=== PATIENT | male | born 1940 | race Caucasian/White ===

== ENCOUNTER → 2016-09-03 | Outpatient (CLI) | payer OTHER ==
[2016-09-03 16:18] LABS: Non-African American GFR(MDRD) >60 (>60 ml/min/1.73 sqM)
== END | disposition home or self-care (01) ==
LOC: LABWHC1 15:33
PROVIDERS: ATTEND Psychiatry & Neurology Neurology
DX: Z13.89 Encounter for screening for other disorder (principal)
CPT/HCPCS: 36415; 82565

== ENCOUNTER → 2016-09-04 | Outpatient (CLI) | payer OTHER ==
--- NOTE | 2016-09-04 15:49 | MR ---
EXAMINATION TYPE: MR cervical spine wo/w con DATE OF EXAM: 09/04/2016 12:59 PM COMPARISON: NONE HISTORY: numbness in both hands TECHNIQUE: Multiplanar, multisequence images of the cervical spine were acquired utilizing 20 mL intravenous Mul tiHance gadolinium contrast. Diffusion weighted imaging was performed. C2-C3: Hemangioma present at the posterior aspect of C3. No significant foraminal encroachment on the right, left-sided foraminal encroachment is present. No significant central canal stenosis or sizabl e disc herniation. C3-C4: Bilateral foraminal encroachment is present. There is moderate to severe central canal stenosi s due to posterior extension of endplate disc complex. C4-C5: Posterior extension of endplate disc complex contact the anterior cervical cord, there is face t arthropathy, uncovertebral joint hypertrophy causing moderate to severe central canal stenosis. C5-C6: Posterior circumferential extension of endplate disc complex, circumferential disc bulge conta cts the anterior cervical cord. There is mild to moderate central stenosis. Bilateral foraminal encro achment due to uncovertebral joint hypertrophy and facet arthropathy. C6-C7: Bilateral foraminal encroachment is present. Posterior extension of endplate disc complex is n oted, there is a right posterior paracentral disc herniation contacting the anterior cervical cord. M ild central stenosis. C7-T1: No evidence for degenerative disc disease. No disc bulge/herniation or protrusion. No Canal stenosis. Foramina are patent bilaterally. Cervical segments are intact. There is normal alignment. Cervical spinal cord is of normal signal. Craniovertebral junction relationships are within normal limits. Cervical vertebral bodies show pre served height, there is retrolisthesis grade 1 C3-4, anterolisthesis grade 1 C4-5, retrolisthesis gra de 1 C5-6, C6-7. Probable hemangioma present at C6. Loss of disc height and signal present especially at C3-4, C4-5, C5-6 and C6-7 compatible with disc desiccation and degenerative disc disease. There i s multilevel spondylosis, endplate discogenic marrow signal change. Cervical cord signal, cervical me dullary junction are normal. 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 No significant abnormal enhancement following contrast menstruation. There is motion on the exam. IMPRESSION: Marked spinal stenosis especially at C3-4, C4-5. Degenerative disc disease, multilevel foraminal encr oachment. There may be substernal goiter present. Additional findings above.
== END | disposition home or self-care (01) ==
LOC: RADMRIMAIN 11:45
PROVIDERS: ATTEND Psychiatry & Neurology Neurology
DX: M48.02 Spinal stenosis, cervical region (principal); M50.30 Other cervical disc degeneration, unspecified cervical region
CPT/HCPCS: 72156; A9577

== ENCOUNTER → 2017-01-30 | Outpatient (CLI) | payer OTHER ==
--- NOTE | 2017-01-30 15:43 | US ---
EXAMINATION TYPE: US kidneys/renal and bladder DATE OF EXAM: 01/30/2017 COMPARISON: NONE CLINICAL HISTORY: hydronephrosis N13.30; renal and bladder stones with history of October and November 2016 stones removed left kidney; stated had prior bladder stones removed too last year. EXAM MEASUREMENTS: Right Kidney: 11.6 x 7.6 x 5.5 cm Left Kidney: 10.9 x 4.5 x 5.2 cm Post Void Residual Volume: 212.7 mL Right Kidney: lower pole cortical cyst = 3.1 x 2.7 x 2.9cm; multiple renal stones are seen with large st as cluster in lower pole = 0.7 x 0.6 x 0.8cm; no hydronephrosis Left Kidney: mid pole cortical cyst = 1.3 x 1.5 x 1.4cm; no hydronephrosis Bladder: shadowing bladder stone = 0.9 x 0.9 x 0. 6cm is seen at posterior bladder wall on images 9,1 0, and 11 and on post void Bilateral Jets seen: Yes Normal Post Void Residual: No as is > 50ml. . IMPRESSION: 1. Findings suggest right-sided nephrolithiasis and bladder calculus with no hydronephrosis. 2. Bilateral hypoechoic nodules with with a single lesion in the medial mid right kidney which does n ot meet the criteria of a simple cyst. This most likely is technical. Correlation with CT scan could be obtained for confirmation. 3. Prostate is prominent in size.
== END | disposition home or self-care (01) ==
LOC: RADUSWWP 13:16
PROVIDERS: ATTEND Urology
DX: N28.89 Other specified disorders of kidney and ureter (principal)
CPT/HCPCS: 76770

== ENCOUNTER → 2017-04-03 | Outpatient (CLI) | payer OTHER ==
--- NOTE | 2017-04-03 16:01 | US ---
EXAMINATION TYPE: US thyroid st tissue head/neck DATE OF EXAM: 04/03/2017 COMPARISON: NONE CLINICAL HISTORY: E04.1 Thyroid Nodule. goiter per patient, no prior here. GLAND SIZE: Right Lobe: 5.3 x 1.9 x 2.5 cm Overall Parenchyma: homogenous Left Lobe: 7.5 x 3.8 x 3.1 cm Overall Parenchyma: heterogeneous Isthmus Thickness: 0.2 cm NODULES RIGHT: # of nodules measured on right: 1 1. 0.8 X 0.7 x 0.7 cm isoechoic solid nodule at the mid pole with well-defined margins; . This nod ule is wider than tall and shows intranodular vascularity. Prior size: no prior here LEFT: # of nodules measured on left: 1 1. 4.9 X 3.6 x 3.4 cm hypoechoic solid nodule at the lower pole with well-defined margins; . This nodule is wider than tall and shows intranodular vascularity. Prior size: no prior here ISTHMUS: # of nodules measured in the isthmus: 0 Bilateral neck scanned, no evidence of lymphadenopathy. difficult to tell if entire left lobe and nodule are being imaged as gland and nodule extend below cl avicle. IMPRESSION: 1. Heterogeneous pattern of the left lobe of the thyroid suggestive of thyroiditis. Large dominant no dule measuring 4.9 cm noted.
== END | disposition home or self-care (01) ==
LOC: RADUSWWP 15:22
PROVIDERS: ATTEND Otolaryngology
DX: E04.1 Nontoxic single thyroid nodule (principal)
CPT/HCPCS: 76536

== ENCOUNTER → 2017-11-23 | Outpatient (CLI) | payer OTHER ==
--- NOTE | 2017-11-23 13:58 | US ---
EXAMINATION TYPE: US thyroid st tissue head/neck DATE OF EXAM: 11/23/2017 COMPARISON: US 04/03/2017 CLINICAL HISTORY: E04.1 THYROID NODULE. GLAND SIZE: Right Lobe: 5.3 x 1.6 x 1.6 cm Overall Parenchyma: homogenous Left Lobe: 6.9 x 4.1 x 2.7 cm Overall Parenchyma: Difficult to assess left lobe texture since nodule takes up most of the thyro id. Isthmus Thickness: 0.5 cm NODULES RIGHT: # of nodules measured on right: 1 1. 0.7 X 0.7 x 0.7 cm hypoechoic solid nodule at the mid pole with well-defined margins; . This no dule is as all as wide and shows no intranodular vascularity. Prior size: 0.8 x 0.7 x 0.7 cm LEFT: # of nodules measured on left: 1 1. 4.9 X 3.7 x 3.7 cm hypoechoic mixed nodule at the lower pole with irregular margins; . This nod ule is as wide as tall and shows intranodular vascularity. Prior size: 4.9 x 3.6 x 3.4 cm ISTHMUS: # of nodules measured in the isthmus: 0 Bilateral neck scanned, no evidence of lymphadenopathy. IMPRESSION: Although there is a similar appearance of the left thyroid nodule measuring up to 4.9 cm in compariso n to the prior of 04/03/2017, percutaneous fine-needle aspiration should be considered given its hete rogeneity, size, and dominance. Solitary right thyroid nodule subcentimeter and overall stable.
== END | disposition home or self-care (01) ==
LOC: RADUSWWP 13:15
PROVIDERS: ATTEND Otolaryngology
DX: E04.1 Nontoxic single thyroid nodule (principal)
CPT/HCPCS: 76536

== ENCOUNTER → 2018-09-17 | Outpatient (CLI) | payer OTHER ==
--- NOTE | 2018-09-17 16:09 | CT ---
EXAMINATION TYPE: CT chest w con DATE OF EXAM: 09/17/2018 COMPARISON: Chest x-ray April 15, 2018 HISTORY: Lung nodules. Previous abnormal exam CT DLP: 712 mGycm. Automated Exposure Control for Dose Reduction was Utilized. TECHNIQUE: CT scan of the thorax is performed following with IV Contrast, patient injected with 80 m L of Isovue 300. FINDINGS: LUNGS: There is motion artifact degradation seen making evaluation suboptimal particularly for subcen timeter nodules. There is 6 mm nodule in the right middle lobe axial image 43 corresponding to villanueva l image 56. There is 4 x 3 mm nodule right midlung anteriorly axial image 31 corresponding to coronal image 49 also on the right middle lobe. There is bibasilar linear scarring and/or atelectasis is pro minent near diaphragms. There is 3 mm right lower lobe nodule axial image 41. No pleural effusion or pneumothorax is evident. Slightly elevated left hemidiaphragm is noted. Tracheobronchial tree is chris nt MEDIASTINUM: There are prominent but subcentimeter bilateral hilar as well as thoracic lymph nodes in the prevascular space, AP window, paratracheal, and subcarinal regions. If you are abnormally enlarg ed for reference right tracheobronchial lymph node measures 1. A 5.1 cm-image 25. No cardiomegaly or pericardial effusion is seen. There is enlarged left thyroid nodule which correlates with thyroid u ltrasound November 23, 2017 and older studies measuring 4 to 5 cm. OTHER: [id number] multilevel spurring in the spine is present. Slight scoliotic curvature is seen. IMPRESSION: Scattered nodules with borderline suspicious thoracic lymph nodes as detailed above. C orrelation with old outside CT advised to determine appropriate follow-up.
== END ==
LOC: RADCTMAIN 14:02
PROVIDERS: ATTEND Internal Medicine
DX: R91.8 Other nonspecific abnormal finding of lung field (principal)
CPT/HCPCS: 82565; 84520; 71260; 36415; Q9967

== ENCOUNTER → 2019-05-19 | Outpatient (CLI) | payer OTHER ==
--- NOTE | 2019-05-20 04:08 | CT ---
EXAMINATION TYPE: CT chest w con DATE OF EXAM: 05/19/2019 COMPARISON: 09/17/2018 and 04/22/2016. CT abdomen and pelvis 04/15/2017 HISTORY: 78-year-old male Follow up for lung nodule. TECHNIQUE: Contiguous axial scanning of the chest after the administration of 80ml mL of Isovue 300. Coronal/sagittal reconstructions performed. CT DLP: 647.4mGycm. Automatic exposure control utilized for a dose reduction. FINDINGS: Heart normal size without pericardial effusion. Prominent epicardial fat pad is noted. Coronary vesse l calcifications. Aorta normal caliber with mild atherosclerotic arch calcifications and conventional arch vessel branc marcela anatomy. Borderline to mildly enlarged caliber to the main right and left pulmonary arteries measuring up to 2 .8 cm may reflect underlying pulmonary arterial hypertension. Nonenlarged to mildly enlarged mediastinal lymph nodes measuring up to 1.1 cm right tracheobronchial angle and 1.1 cm precarinal are unchanged. Prominent bilateral hilar lymph nodes are unchanged measur ing up to 1.6 cm on the right and 1.3 cm on the left. Interval resection of the previous large left thyroid lobe nodule which demonstrated substernal exten rashmi. Prominent scattered areas of atelectasis and scarring within the lower lungs. Some chronic interstiti al changes are also present such as at the posterior left base. 7 mm right basilar pulmonary nodule stable back to 2016. 4 mm anterior right midlung pulmonary nodule stable back to 2016. 4 mm right upper lobe pulmonary nodule axial image 31, stable. No new consolidation or pleural effusion. Visualized upper abdomen shows a 1.3 cm cortical cyst lateral left kidney, stable from 2017 and a par tially visualized 4 mm nonobstructive left renal calculus. Bones: Bridging anterior plate spondylosis mid to lower thoracic spine compatible with dish. Superior endplate Schmorl's node of L2. IMPRESSION: 1. A few pulmonary nodules measuring up to 7 mm are all unchanged back to 2016 compatible with a roderick gn etiology. 2. Prominent scattered areas of atelectasis and scarring and some chronic interstitial change at the lower lungs. 3. Interval resection of the large left thyroid nodule. Nonenlarged and mildly enlarged mediastinal a nd hilar lymph nodes are stable back to 2016 compatible with a chronic postinflammatory etiology.
== END | disposition home or self-care (01) ==
LOC: RADCTMAIN 14:02
PROVIDERS: ATTEND Internal Medicine
DX: J98.11 Atelectasis (principal); R91.8 Other nonspecific abnormal finding of lung field; R59.1 Generalized enlarged lymph nodes
CPT/HCPCS: 82565; 84520; 71260; 36415; Q9967

== ENCOUNTER 2021-05-29 17:22 | Emergency (ER) | payer OTHER, MEDICARE ==
[2021-05-29] MEDS ORDERED: MORPHINE SULFATE 4 MG/ML SYRINGE IVP STA (17:51)
[2021-05-29 17:53] VITALS: TEMP 98.2
[2021-05-29 18:35] LABS: Basophils % (A) 0 %; Eosinophils # (A) 0.1 k/uL (0-0.7); Eosinophils % (A) 2 %; HCT 40.4 % (39.0-53.0); HGB 12.9 gm/dL (13.0-17.5); Lymphocytes # (A) 2.2 k/uL (1.0-4.8); Lymphocytes % (A) 34 %; MCH 29.1 pg (25.0-35.0); MCV 91.1 fL (80.0-100.0); Mean Platelet Volume 7.1; Monocytes # (A) 0.4 k/uL (0-1.0); Monocytes % (A) 6 %; Neutrophils # (A) 3.7 k/uL (1.3-7.7); Neutrophils % (A) 57 %; Platelet Count 353 k/uL (150-450); RBC 4.43 m/uL (4.30-5.90); RDW 14.8 % (11.5-15.5); WBC 6.4 k/uL (3.8-10.6)
[2021-05-29 18:46] LABS: ALT 17 U/L (4-49); AST 37 U/L (17-59); African American GFR (CKD) >90 (>60 ml/min/1.73 sqM); Albumin 3.1 g/dL (3.5-5.0); Alkaline Phosphatase 52 U/L (38-126); Amylase 42 U/L (30-110); Anion Gap 5 mmol/L; Blood Urea Nitrogen 12 mg/dL (9-20); Calcium 8.8 mg/dL (8.4-10.2); Carbon Dioxide 29 mmol/L (22-30); Chloride 97 mmol/L (98-107); Glucose 84 mg/dL (74-99); Lipase 142 U/L (23-300); Non-African American GFR(CKD) >90 (>60 ml/min/1.73 sqM); Sodium 131 mmol/L (137-145); Total Bilirubin 0.8 mg/dL (0.2-1.3); Total Protein 6.4 g/dL (6.3-8.2)
--- NOTE | 2021-05-29 19:38 | CT ---
EXAMINATION TYPE: CT abdomen pelvis wo con DATE OF EXAM: 05/29/2021 COMPARISON: 04/15/2017. HISTORY: hematuria CT DLP: 1307.4 mGycm Automated exposure control for dose reduction was used. TECHNIQUE: Helical acquisition of images was performed from the lung bases through the pelvis. FINDINGS: LUNG BASES: Mild bibasilar opacities, probably atelectasis. LIVER/GB: No significant abnormality is appreciated. PANCREAS: No significant abnormality is seen. SPLEEN: No significant abnormality is seen. ADRENALS: No significant abnormality is seen. KIDNEYS: Nonobstructing adjacent renal calculi in the left kidney lower pole measuring up to 8 mm. Al so few nonobstructing right renal calculi measuring up to 2 mm. No bilateral hydronephrosis. 1.6 cm l eft and 2.6 cm right renal cyst seen. FREE AIR: No free air is visualized RETROPERITONEAL ADENOPATHY: None visualized REPRODUCTIVE ORGANS: No significant abnormality is seen URINARY BLADDER: Moderate urinary bladder wall thickening. Fernandez catheter with balloon within the pr ostatic urethra seen. PELVIC ADENOPATHY: None visualized. OSSEOUS STRUCTURES: No acute abnormality is seen. Moderate lumbar spondylosis with levoconvex scolio sis. BOWEL: No acute abnormality is seen. Gastric tube in adequate position seen. OTHER: None IMPRESSION: FERNANDEZ CATHETER WITH BALLOON IN THE PROSTATIC URETHRA. RECOMMEND ADJUSTMENT. URINARY BLADDER WALL THICKENING, CORRELATE FOR CYSTITIS. BILATERAL NEPHROLITHIASIS AND RENAL CYSTS. NO NEPHROLITHIASIS. NO BOWEL OBSTRUCTION. Findings were reported to caring ED physician by me at time of dictation.
[2021-05-29] MEDS ORDERED: LIDOCAINE URO-JET JELLY 2% 5 ML KIT URETHRAL ONE ×2 (20:10→20:27)
--- NOTE | 2021-05-29 20:41 | ED ---
General Adult HPI - General Chief complaint: Abdominal Pain Stated complaint: Blood in Urine Time Seen by Provider: 05/29/21 17:45 Source: patient, EMS, RN notes reviewed, old records reviewed Mode of arrival: EMS Limitations: no limitations, physical limitation - History of Present Illness Initial comments: 81-year-old male presenting from hematuria and lower abdominal pain. Patient has indwelling Villafana catheter and [facility] noticed blood in the Villafana bag as well as some bleeding around the Villafana catheter. Patient believes that the Villafana catheter was last changed in December. He is bedbound with history of CVA.. He does report a lower abdominal pain. He denies anticoagulation. Patient is a poor historian. - Related Data Home Medications Medication Instructions Recorded Confirmed Acetaminophen Extra Strength 500 mg PEG/G-TUBE DAILY 05/29/21 05/29/21 Liquid 500mg/15ml Acetaminophen Extra Strength 500 mg PEG/G-TUBE Q6H PRN 05/29/21 05/29/21 Liquid 500mg/15ml Albuterol Nebulized [Ventolin 2.5 mg INHALATION RT-Q4H PRN 05/29/21 05/29/21 Nebulized] Ammonium Lactate Cream [Lac-Hydrin 1 applic TOPICAL DAILY@1400 05/29/21 05/29/21 12% Cream] Ascorbic Acid [Vitamin C] 1,000 mg PEG/G-TUBE DAILY 05/29/21 05/29/21 Aspirin 81 mg PEG/G-TUBE DAILY 05/29/21 05/29/21 Atorvastatin Calcium [Lipitor] 80 mg PEG/G-TUBE HS 05/29/21 05/29/21 Cholecalciferol [Vitamin D3 (25 50 mcg PO DAILY 05/29/21 05/29/21 Mcg = 1000 Iu)] Enoxaparin Sodium 40 mg SQ DAILY 05/29/21 05/29/21 Menthol [Biofreeze] 1 applic TOPICAL TID 05/29/21 05/29/21 Multivitamins, Thera Liquid 5 ml PEG/G-TUBE DAILY 05/29/21 05/29/21 [Theragran Liquid (formulary)] Sennosides [Senna] 8.6 mg PO BID 05/29/21 05/29/21 Sennosides-Docusate Sodium 2 tab PEG/G-TUBE DAILY@1400 05/29/21 05/29/21 [Senokot-S] Tamsulosin [Flomax] 0.4 mg PO HS 05/29/21 05/29/21 Zinc Sulfate [Orazinc] 220 mg PO DAILY 05/29/21 05/29/21 levETIRAcetam [Keppra Oral 500 mg PEG/G-TUBE DAILY 05/29/21 05/29/21 Solution] traMADol HCl [Ultram] 50 mg PEG/G-TUBE Q12H PRN 05/29/21 05/29/21 Allergies Allergy/AdvReac Type Severity Reaction Status Date / Time No Known Allergies Allergy Verified 05/29/21 18:30 Review of Systems ROS Statement: Those systems with pertinent positive or pertinent negative responses have been documented in the HPI. ROS Other: All systems not noted in ROS Statement are negative. Past Medical History Past Medical History: CVA/TIA History of Any Multi-Drug Resistant Organisms: None Reported Additional Past Surgical History / Comment(s): peg tube Past Psychological History: No Psychological Hx Reported Smoking Status: Never smoker Past Alcohol Use History: None Reported Past Drug Use History: None Reported General Exam Limitations: no limitations, physical limitation General appearance: alert, in no apparent distress Head exam: Present: atraumatic, normocephalic Eye exam: Present: normal appearance, PERRL ENT exam: Present: normal exam Neck exam: Present: normal inspection. Absent: tenderness, meningismus Respiratory exam: Present: normal lung sounds bilaterally. Absent: respiratory distress, wheezes Cardiovascular Exam: Present: regular rate, normal rhythm GI/Abdominal exam: Present: soft, tenderness (Mental lower tenderness.). Absent: distended, guarding, rebound exam: Absent: scrotal swelling External exam: Present: lesions, other (Urethral fistula) Neurological exam: Present: alert, CN II-XII intact, motor sensory deficit (left Sided hemiplegia). Absent: oriented X3 Psychiatric exam: Present: normal affect, normal mood Skin exam: Present: warm, dry, intact. Absent: cyanosis, diaphoretic Course Vital Signs 05/29/21 05/29/21 17:34 19:43 Temperature 98.2 F Pulse Rate 86 Respiratory 18 17 Rate Blood Pressure 122/67 O2 Sat by Pulse 95 Oximetry - Reevaluation(s) Reevaluation #1: 05/29/21 20:[address] showing that the catheter balloon is in the urethra. Villafana catheter was removed, nursing staff was unable to pass 20-[place] Villafana catheter into the bladder. I did attempt with 20-[place] coud, unsuccessful. Case discussed with Dr. Harrington, who will evaluate patient in the emergency department. Medical Decision Making - Medical Decision Making 81-year-old male with hematuria. Patient had abdominal pain, grossly bloody urine. CT was performed which showed that the previous Villafana catheter was in the prosthetic urethra. This catheter was removed attempts were made to replace his catheter were unsuccessful ultimately Dr. Rico was able to evaluate the patient emergency department and performed cystoscopy guided catheter insertion. Catheter is irrigated with normal saline. It is flowing freely. [facility] with [facility] follow-up. - Lab Data Result diagrams: 05/29/21 18:14 05/29/21 18:14 Lab Results 05/29/21 05/29/21 05/29/21 Range/Units 18:14 18:14 18:14 WBC 6.4 (3.8-10.6) k/uL RBC 4.43 (4.30-5.90) m/uL Hgb 12.9 L (13.0-17.5) gm/dL Hct 40.4 (39.0-53.0) % MCV 91.1 (80.0-100.0) fL MCH 29.1 (25.0-35.0) pg MCHC 32.0 (31.0-37.0) g/dL RDW 14.8 (11.5-15.5) % Plt Count 353 (150-450) k/uL MPV 7.1 Neutrophils % 57 % Lymphocytes % 34 % Monocytes % 6 % Eosinophils % 2 % Basophils % 0 % Neutrophils # 3.7 (1.3-7.7) k/uL Lymphocytes # 2.2 (1.0-4.8) k/uL Monocytes # 0.4 (0-1.0) k/uL Eosinophils # 0.1 (0-0.7) k/uL Basophils # 0.0 (0-0.2) k/uL Sodium 131 L (137-145) mmol/L Potassium 5.0 (3.5-5.1) mmol/L Chloride 97 L (98-107) mmol/L Carbon Dioxide 29 (22-30) mmol/L Anion Gap 5 mmol/L BUN 12 (9-20) mg/dL Creatinine 0.66 (0.66-1.25) mg/dL Est GFR (CKD-EPI)AfAm >90 (>60 ml/min/1.73 sqM) Est GFR (CKD-EPI)NonAf >90 (>60 ml/min/1.73 sqM) Glucose 84 (74-99) mg/dL Plasma Lactic Acid Evans 1.2 (0.7-2.0) mmol/L Calcium 8.8 (8.4-10.2) mg/dL Total Bilirubin 0.8 (0.2-1.3) mg/dL AST 37 (17-59) U/L ALT 17 (4-49) U/L Alkaline Phosphatase 52 (38-126) U/L Total Protein 6.4 (6.3-8.2) g/dL Albumin 3.1 L (3.5-5.0) g/dL Amylase 42 (30-110) U/L Lipase 142 (23-300) U/L Disposition Clinical Impression: Hematuria, Indwelling Villafana catheter present Disposition: HOME SELF-CARE Condition: Fair Instructions (If sedation given, give patient instructions): Hematuria (ED) Is patient prescribed a controlled substance at d/c from ED?: No Referrals: Carter Ferreira DO [Primary Care Provider] - 1-2 days Reynaldo Harrington MD [STAFF PHYSICIAN] - 1-2 days Time of Disposition: 21:41
--- NOTE | 2021-05-29 21:40 | P.GSCN ---
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 He resides a [facility]. He presents to the ER today because of Villafana catheter is not draining, and he has noted urinary leakage around the catheter. Computed tomography scan reveals the Villafana catheter balloon to be inflated within the prostatic urethra. Attempts by the ER staff to replace the catheter have been unsuccessful. Review of Systems - Constitutional Denies chills, Denies fever - Genitourinary Reports hematuria Past Medical History Past Medical History: CVA/TIA History of Any Multi-Drug Resistant Organisms: None Reported Additional Past Surgical History / Comment(s): peg tube Past Psychological History: No Psychological Hx Reported Smoking Status: Never smoker Past Alcohol Use History: None Reported Past Drug Use History: None Reported Medications and Allergies Home Medications Medication Instructions Recorded Confirmed Type Acetaminophen Extra Strength 500 mg PEG/G-TUBE DAILY 05/29/21 05/29/21 History Liquid 500mg/15ml Acetaminophen Extra Strength 500 mg PEG/G-TUBE Q6H PRN 05/29/21 05/29/21 History Liquid 500mg/15ml Albuterol Nebulized [Ventolin 2.5 mg INHALATION RT-Q4H PRN 05/29/21 05/29/21 History Nebulized] Ammonium Lactate Cream [Lac-Hydrin 1 applic TOPICAL DAILY@1400 05/29/21 05/29/21 History 12% Cream] Ascorbic Acid [Vitamin C] 1,000 mg PEG/G-TUBE DAILY 05/29/21 05/29/21 History Aspirin 81 mg PEG/G-TUBE DAILY 05/29/21 05/29/21 History Atorvastatin Calcium [Lipitor] 80 mg PEG/G-TUBE HS 05/29/21 05/29/21 History Cholecalciferol [Vitamin D3 (25 50 mcg PO DAILY 05/29/21 05/29/21 History Mcg = 1000 Iu)] Enoxaparin Sodium 40 mg SQ DAILY 05/29/21 05/29/21 History Menthol [Biofreeze] 1 applic TOPICAL TID 05/29/21 05/29/21 History Multivitamins, Thera Liquid 5 ml PEG/G-TUBE DAILY 05/29/21 05/29/21 History [Theragran Liquid (formulary)] Sennosides [Senna] 8.6 mg PO BID 05/29/21 05/29/21 History Sennosides-Docusate Sodium 2 tab PEG/G-TUBE DAILY@1400 05/29/21 05/29/21 History [Senokot-S] Tamsulosin [Flomax] 0.4 mg PO HS 05/29/21 05/29/21 History Zinc Sulfate [Orazinc] 220 mg PO DAILY 05/29/21 05/29/21 History levETIRAcetam [Keppra Oral 500 mg PEG/G-TUBE DAILY 05/29/21 05/29/21 History Solution] traMADol HCl [Ultram] 50 mg PEG/G-TUBE Q12H PRN 05/29/21 05/29/21 History Allergies Allergy/AdvReac Type Severity Reaction Status Date / Time No Known Allergies Allergy Verified 05/29/21 18:30 Surgical - Exam Vital Signs Temp Pulse Resp BP Pulse Ox 98.2 F 86 18 122/67 95 05/29/21 17:34 05/29/21 17:34 05/29/21 17:34 05/29/21 17:34 05/29/21 17:34 - General well developed, well nourished, no distress - Respiratory normal respiratory effort - Abdomen Abdomen: soft, non tender, no guarding, no rigid, no rebound - Genitourinary The urethral meatus is eroded ventrally to the level of the midshaft. The scrotum and testes are normal. - Psychiatric oriented to time, oriented to person, oriented to place, speech is normal, memory intact Results - Labs 05/29/21 18:14 05/29/21 18:14 Abnormal Lab Results - Last 24 Hours (Table) 05/29/21 05/29/21 Range/Units 18:14 18:14 Hgb 12.9 L (13.0-17.5) gm/dL Sodium 131 L (137-145) mmol/L Chloride 97 L (98-107) mmol/L Albumin 3.1 L (3.5-5.0) g/dL Diabetes panel 05/29/21 Range/Units 18:14 Sodium 131 L (137-145) mmol/L Potassium 5.0 (3.5-5.1) mmol/L Chloride 97 L (98-107) mmol/L Carbon Dioxide 29 (22-30) mmol/L BUN 12 (9-20) mg/dL Creatinine 0.66 (0.66-1.25) mg/dL Glucose 84 (74-99) mg/dL Calcium 8.8 (8.4-10.2) mg/dL AST 37 (17-59) U/L ALT 17 (4-49) U/L Alkaline Phosphatase 52 (38-126) U/L Total Protein 6.4 (6.3-8.2) g/dL Albumin 3.1 L (3.5-5.0) g/dL Calcium panel 05/29/21 Range/Units 18:14 Calcium 8.8 (8.4-10.2) mg/dL Albumin 3.1 L (3.5-5.0) g/dL Pituitary panel 05/29/21 Range/Units 18:14 Sodium 131 L (137-145) mmol/L Potassium 5.0 (3.5-5.1) mmol/L Chloride 97 L (98-107) mmol/L Carbon Dioxide 29 (22-30) mmol/L BUN 12 (9-20) mg/dL Creatinine 0.66 (0.66-1.25) mg/dL Glucose 84 (74-99) mg/dL Calcium 8.8 (8.4-10.2) mg/dL Adrenal panel 05/29/21 Range/Units 18:14 Sodium 131 L (137-145) mmol/L Potassium 5.0 (3.5-5.1) mmol/L Chloride 97 L (98-107) mmol/L Carbon Dioxide 29 (22-30) mmol/L BUN 12 (9-20) mg/dL Creatinine 0.66 (0.66-1.25) mg/dL Glucose 84 (74-99) mg/dL Calcium 8.8 (8.4-10.2) mg/dL Total Bilirubin 0.8 (0.2-1.3) mg/dL AST 37 (17-59) U/L ALT 17 (4-49) U/L Alkaline Phosphatase 52 (38-126) U/L Total Protein 6.4 (6.3-8.2) g/dL Albumin 3.1 L (3.5-5.0) g/dL - Imaging CT scan - abdomen: report reviewed, image reviewed Assessment and Plan Plan: The penis was prepped and draped sterilely. 2% lidocaine gel was administered intraurethrally. An unsuccessful attempt was made to pass a 14-[place] coud-tip Villafana catheter into the bladder. Cystoscopy was performed to assist in Villafana catheter replacement. The urine drained from the bladder was bloody, and therefore the catheter will be irrigated until clear.
--- NOTE | 2021-05-29 21:44 | P.PCN ---
Date of Procedure: 05/29/21 Preoperative Diagnosis: Urinary retention, urethral false passage Postoperative Diagnosis: Same Procedure(s) Performed: Cystoscopy, Villafana catheter placement Anesthesia: local Surgeon: Reynaldo Harrington Estimated Blood Loss (ml): 0 IV fluids (ml): 0 Pathology: none sent Condition: stable Disposition: no change Indications for Procedure: The patient is a 81-year-old white male with chronic urinary retention, managed with a chronic indwelling catheter. The catheter has been draining it adequately, so the patient presented to the ER. Computed tomography scan shows the balloon to be inflated within the prostatic urethra. The catheter was removed, and attempts to replace the catheter were unsuccessful. Operative Findings: Urethral false passage. Description of Procedure: The penis was prepped and draped sterilely. 2% lidocaine gel was administered intraurethrally. An attempt was made to pass a 14-[place] coud-tip Villafana catheter into the bladder, but this was unsuccessful. A urethral false passage is suspected. The 16-[place] A[facility] flexible cystoscope was advanced into the urethra under direct vision. Blood was noted within the bulbous and prostatic urethra. The cystoscope was deflected to hug the anterior urethral wall, and it was possible to pass the cystoscope into the bladder. A 0.035 inch Glidewire was passed through the cystoscope and into the bladder, where it coiled. The cystoscope was removed. The scalpel was used to incise the tip of a 16-[place] Villafana catheter, which was then passed over the wire and into the bladder. Bloody urine without clots drained from the bladder. The catheter was connected to gravity drainage.
[2021-05-29 22:43] VITALS: BP 128/68; PULSE 65; RESP 16
== END 2021-05-30 00:07 | disposition home or self-care (01) ==
LOC: EC 17:22
DX: R31.9 Hematuria, unspecified (principal); R10.30 Lower abdominal pain, unspecified; Z79.82 Long term (current) use of aspirin; Z86.73 Personal history of transient ischemic attack (TIA), and cerebral infarction without residual deficits
CPT/HCPCS: 80053; 82150; 83605; 83690; 85025; 74176; 99285; 96374; 51702; J2270; 36415

== ENCOUNTER → 2021-09-02 | Outpatient (CLI) | payer MEDICARE, OTHER ==
--- NOTE | 2021-09-02 12:41 | MR ---
EXAMINATION TYPE: MR brain wo/w con DATE OF EXAM: 09/02/2021 11:36 AM COMPARISON: NONE HISTORY: Stroke, brain tumor, surgery 1983 CONTRAST: Patient received 8 mL intravenous Gadavist gadolinium contrast. Multiplanar and multispin-echo imaging of the brain was performed . Pre and post contrast enhanced i mages are obtained. There is postoperative craniotomy change right frontal parietal region with glios is are noted. No recurrent or residual mass identified. The ventricles, basal cisterns and sulci overlying the cerebral convexities are moderately enlarged. There is evidence of mild periventricular white matter ischemic demyelination. Remote deep white matter insults are also noted. No acute edema is seen on diffusion weighted imaging. There is no evidence for midline shift or mass effect. Acute intracranial hemorrhage or extra-axial collection is not evident. No enhancing lesions are seen. The paranasal sinuses and mastoid air cells are well-aerated. IMPRESSION: 1. Age-related atrophic and chronic small vessel ischemic change. No acute intracranial process at t his time. 2. Postoperative changes without evidence for recurrent or residual mass.
== END | disposition home or self-care (01) ==
LOC: RADMRIMAIN 10:29
PROVIDERS: ATTEND Psychiatry & Neurology Neurology
DX: C71.0 Malignant neoplasm of cerebrum, except lobes and ventricles (principal); I66.01 Occlusion and stenosis of right middle cerebral artery
CPT/HCPCS: 70553; A9585

== ENCOUNTER 2021-10-11 16:48 | Emergency (ER) | payer MEDICARE, OTHER ==
[2021-10-11] MEDS ORDERED: SODIUM CHLORIDE 0.9% 1,000 ML IV STA (17:07)
[2021-10-11 17:18] VITALS: BP 120/79; PULSE 67; RESP 18; TEMP 97.7
[2021-10-11] MEDS ORDERED: CEPHALEXIN 250 MG CAP PO STA (17:33)
[2021-10-11] MEDS ORDERED: LEVOFLOXACIN 500 MG TAB PO STA (17:34)
[2021-10-11] MEDS ORDERED: LIDOCAINE URO-JET JELLY 2% 5 ML KIT URETHRAL ONE (18:47)
--- NOTE | 2021-10-11 19:55 | ED ---
Male Urogenital HPI - General Chief complaint: Urogenital Stated complaint: Male Time Seen by Provider: 10/11/21 16:53 Source: patient Mode of arrival: EMS - History of Present Illness Initial comments: Patient is a 81-year-old male who presents to the emergency department for evaluation of a possible urinary tract infection. Per EMS patient resides at [facility] who has concern patient had a urinary tract infection due to penile pain. Patient does have a chronic Villafana catheter present and of note has history of CVA with left sided residual weakness. Patient states the tip of his penis kuhn. He has not noticed any discharge and denies blood in the Villafana bag. Denies fever, chills, SOB, chest pain, abdominal pain, flank pain, back pain, nausea, and vomiting. According to patient and documentation there was trouble replacing Villafana catheter last time patient was here in the emergency department this past May where he was diagnosed with a false passage. After numerous attempts urology used cystoscopy guided Villafana catheter placement. - Related Data Home Medications Medication Instructions Recorded Confirmed Acetaminophen Extra Strength 500 mg PO DAILY 05/29/21 10/15/21 Liquid 500mg/15ml Acetaminophen Extra Strength 500 mg PO Q6H PRN 05/29/21 10/15/21 Liquid 500mg/15ml Albuterol Nebulized [Ventolin 2.5 mg INHALATION RT-Q4H PRN 05/29/21 10/15/21 Nebulized] Ammonium Lactate Cream [Lac-Hydrin 1 applic TOPICAL DAILY@1400 05/29/21 10/15/21 12% Cream] Aspirin 81 mg PO DAILY 05/29/21 10/15/21 Atorvastatin Calcium [Lipitor] 80 mg PO HS 05/29/21 10/15/21 Cholecalciferol [Vitamin D3 (25 50 mcg PO DAILY 05/29/21 10/15/21 Mcg = 1000 Iu)] Enoxaparin Sodium 40 mg SQ DAILY 05/29/21 10/15/21 Menthol [Biofreeze] 1 applic TOPICAL TID 05/29/21 10/15/21 Multivitamins, Thera Liquid 5 ml PO DAILY 05/29/21 10/15/21 [Theragran Liquid (formulary)] Sennosides [Senna] 8.6 mg PO BID 05/29/21 10/15/21 Sennosides-Docusate Sodium 2 tab PO DAILY@1400 05/29/21 10/15/21 [Senokot-S] Tamsulosin [Flomax] 0.4 mg PO HS 05/29/21 10/15/21 levETIRAcetam [Keppra Oral 500 mg PO DAILY 05/29/21 10/15/21 Solution] traMADol HCl [Ultram] 50 mg PO Q12H PRN 05/29/21 10/15/21 Cephalexin [Keflex] 500 mg PO Q6H 10/15/21 10/15/21 Healthshake 1 can PO TID@0700,1200,1700 10/15/21 10/15/21 Levofloxacin [Levaquin] 500 mg PO BID@0800,1600 10/15/21 10/15/21 Magnesium Hydroxide [Milk of 400 mg PO DAILY PRN 10/15/21 10/15/21 Magnesia] Menthol [Biofreeze] 1 applic TOPICAL Q4H PRN 10/15/21 10/15/21 Vision Vitamins Tablet 1 tab PO DAILY@1400 10/15/21 10/15/21 Allergies Allergy/AdvReac Type Severity Reaction Status Date / Time No Known Allergies Allergy Verified 10/15/21 18:12 Review of Systems ROS Statement: Those systems with pertinent positive or pertinent negative responses have been documented in the HPI. ROS Other: All systems not noted in ROS Statement are negative. Past Medical History Past Medical History: CVA/TIA History of Any Multi-Drug Resistant Organisms: None Reported Additional Past Surgical History / Comment(s): peg tube Past Psychological History: No Psychological Hx Reported Smoking Status: Never smoker Past Alcohol Use History: None Reported Past Drug Use History: None Reported General Exam Limitations: physical limitation General appearance: alert, in no apparent distress Head exam: Present: atraumatic, normocephalic, normal inspection Eye exam: Present: normal appearance, PERRL, EOMI. Absent: scleral icterus, conjunctival injection, periorbital swelling Respiratory exam: Present: normal lung sounds bilaterally. Absent: respiratory distress, wheezes, rales, rhonchi, stridor Cardiovascular Exam: Present: regular rate, normal rhythm, normal heart sounds. Absent: systolic murmur, diastolic murmur, rubs, gallop, clicks GI/Abdominal exam: Present: soft, normal bowel sounds, other (Mild erythema around PEG tube with purulent drainage). Absent: distended, tenderness, guarding, rebound, rigid Back exam: Absent: CVA tenderness (R), CVA tenderness (L) Neurological exam: Present: alert, oriented X3, CN II-XII intact Skin exam: Present: warm, dry, intact, normal color. Absent: rash Course Vital Signs 10/11/21 17:12 Temperature 97.7 F Pulse Rate 67 Respiratory 18 Rate Blood Pressure 120/79 O2 Sat by Pulse 98 Oximetry Medical Decision Making - Medical Decision Making This is a 81-year-old male who presents for evaluation of possible urinary tract infection. Thorough history and examination were performed. Patient is well- appearing and in no apparent distress. During my general exam infection of patient's PEG tube site was appreciated. There is mild erythema and tenderness with purulent drainage. No fluctuance or induration is appreciated to suggest abscess. There is yellow urine in patient's Villafana bag which appears to be draining however the nurse has trouble obtaining a sample. He then tries to flush the Villafana catheter which was unsuccessful. Bladder scan shows over [address] Donis assisted me with bedside bladder ultrasound. The balloon was not found to be in the bladder. In [address] Donis replaced the Villafana catheter successfully. Urinalysis pending. I personally explored and cleaned patient's PEG tube site. I placed sponge dressing at the site. Patient will be discharged with antibiotics for PEG tube site infection and probable urinary tract infection. Per his urine culture he is susceptible to levofloxacin. He was given first dose of levofloxacin and Keflex here. He will be sent back to [facility] with both of these antibiotics. I will discharge with specific instruction to [facility] at the patient needs to have sponge dressing over PEG tube site until infection is cleared. I also informed patient. He verbalizes understanding and is agreeable to this plan. Dr. Donis is my attending. - Lab Data Lab Results 10/11/21 Range/Units 19:46 Urine Color Yellow Urine Appearance Cloudy (Clear) Urine pH 6.5 (5.0-8.0) Ur Specific [place] 1.009 (1.001-1.035) Urine Protein 1+ H (Negative) Urine Glucose (UA) Negative (Negative) Urine Ketones Negative (Negative) Urine Blood Large H (Negative) Urine Nitrite Positive (Negative) Urine Bilirubin Negative (Negative) Urine Urobilinogen <2.0 (<2.0) mg/dL Ur Leukocyte Esterase Large H (Negative) Urine RBC 30 H (0-5) /hpf Urine WBC >182 H (0-5) /hpf Urine WBC Clumps Many H (None) /hpf Urine Bacteria Few H (None) /hpf Urine Mucus Rare H (None) /hpf Disposition Clinical Impression: Urinary tract infection, Villafana catheter problem, Infection of PEG site Disposition: HOME SELF-CARE Condition: Fair Instructions (If sedation given, give patient instructions): How to Use and Care for Your PEG Tube (ED), Urinary Tract Infection in Men (ED) Additional Instructions: Patient has peg tube infection and likely urinary tract infection. Please give patient both antibiotics as directed. Patient needs to have sponge dressing over PEG tube site until antibiotics are finished and until there is no longer drainage from the site. Please give patient pain medication as he might be experiencing pain from Villafana catheter changed today. Follow up with primary care provider in one to 2 days. Return to the emergency department if patient experiences new, concerning, or worsening symptoms. Is patient prescribed a controlled substance at d/c from ED?: No Referrals: Carter Ferreira DO [Primary Care Provider] - 1-2 days Time of Disposition: 20:00
[2021-10-11 20:07] LABS: Appearance,Urine Cloudy (Clear); Bacteria,Urine Few /hpf; Bilirubin,Urine Negative (Negative); Blood,Urine Large (Negative); Color,Urine Yellow; Glucose,Urine (UA) Negative (Negative); Ketones,Urine Negative (Negative); Leukocyte Esterase,Urine Large (Negative); Mucus,Urine Rare /hpf; Nitrite,Urine Positive (Negative); PH, Urine 6.5 (5.0-8.0); Protein,Urine 1+ (Negative); RBC,Urine 30 /hpf (0-5); Specific Gravity,Urine 1.009 (1.001-1.035); Urobilinogen,Urine <2.0 mg/dL (<2.0); WBC,Urine >182 /hpf (0-5)
== END 2021-10-11 22:14 | disposition home or self-care (01) ==
LOC: EC 16:48
DX: N39.0 Urinary tract infection, site not specified (principal); T83.098A Other mechanical complication of other urinary catheter, initial encounter; Z86.73 Personal history of transient ischemic attack (TIA), and cerebral infarction without residual deficits
CPT/HCPCS: 81001; 87077; 87086; 87186

== ENCOUNTER 2021-10-15 15:59 | Emergency (ER) | payer MEDICARE, OTHER ==
--- NOTE | 2021-10-15 16:40 | ED ---
General Adult HPI - General Chief complaint: Head Injury Stated complaint: fall Time Seen by Provider: 10/15/21 16:21 Source: EMS Mode of arrival: EMS Limitations: no limitations - History of Present Illness Initial comments: Dictation was produced using [employer] dictation software. please excuse any grammatical, word or spelling errors. Chief Complaint: 81-year-old male presents to the emergency department after being dropped in the [facility] the [facility] History of Present Illness: Patient 81-year-old male he takes coagulation medications. Patient currently a resident at the [facility]. He was being lifted by the lower lip when he fell out of it and landed on his head. Denies any loss of consciousness. Patient also complaining of right-sided back pain. Patient has any head pain. Denies any neck pain. The ROS documented in this emergency department record has been reviewed and confirmed by me. Those systems with pertinent positive or negative responses have been documented in the HPI. All other systems are other negative and/or noncontributory. PHYSICAL EXAM: General Impression: Alert and oriented x3, not in acute distress HEENT: Hematoma to the right parietal area, extra-ocular movements intact, pupils equal and reactive to light bilaterally, mucous membranes moist. Cardiovascular: Heart regular rate and rhythm Chest: Able to complete full sentences, no retractions, no tachypnea Abdomen: abdomen soft, non-tender, non-distended, no organomegaly Musculoskeletal: Pulses present and equal in all extremities, no peripheral edema Motor: no focal deficits noted Neurological: CN II-XII grossly intact, no focal motor or sensory deficits noted Skin: Intact with no visualized rashes Psych: Normal affect and mood ED course: 81-year-old male who fell out of a clear lift at the [facility] resents to the ER for head injury and evaluation of right back pain. vital signs as upon arrival are within acceptable limits. Computed tomography scan of the head and C-spine shows no acute processes. Chest x-ray is unremarkable. Patient observed in the emergency department for approximately 2 hours previous reevaluated bedside at 5:50 PM found to be in stable medical condition. Patient's well-appearing not showing signs of distress. Patient will be discharged. - Related Data Home Medications Medication Instructions Recorded Confirmed Acetaminophen Extra Strength 500 mg PEG/G-TUBE DAILY 05/29/21 05/29/21 Liquid 500mg/15ml Acetaminophen Extra Strength 500 mg PEG/G-TUBE Q6H PRN 05/29/21 05/29/21 Liquid 500mg/15ml Albuterol Nebulized [Ventolin 2.5 mg INHALATION RT-Q4H PRN 05/29/21 05/29/21 Nebulized] Ammonium Lactate Cream [Lac-Hydrin 1 applic TOPICAL DAILY@1400 05/29/21 05/29/21 12% Cream] Ascorbic Acid [Vitamin C] 1,000 mg PEG/G-TUBE DAILY 05/29/21 05/29/21 Aspirin 81 mg PEG/G-TUBE DAILY 05/29/21 05/29/21 Atorvastatin Calcium [Lipitor] 80 mg PEG/G-TUBE HS 05/29/21 05/29/21 Cholecalciferol [Vitamin D3 (25 50 mcg PO DAILY 05/29/21 05/29/21 Mcg = 1000 Iu)] Enoxaparin Sodium 40 mg SQ DAILY 05/29/21 05/29/21 Menthol [Biofreeze] 1 applic TOPICAL TID 05/29/21 05/29/21 Multivitamins, Thera Liquid 5 ml PEG/G-TUBE DAILY 05/29/21 05/29/21 [Theragran Liquid (formulary)] Sennosides [Senna] 8.6 mg PO BID 05/29/21 05/29/21 Sennosides-Docusate Sodium 2 tab PEG/G-TUBE DAILY@1400 05/29/21 05/29/21 [Senokot-S] Tamsulosin [Flomax] 0.4 mg PO HS 05/29/21 05/29/21 Zinc Sulfate [Orazinc] 220 mg PO DAILY 05/29/21 05/29/21 levETIRAcetam [Keppra Oral 500 mg PEG/G-TUBE DAILY 05/29/21 05/29/21 Solution] traMADol HCl [Ultram] 50 mg PEG/G-TUBE Q12H PRN 05/29/21 05/29/21 Previous Rx's Medication Instructions Recorded Cephalexin [Keflex] 500 mg PO Q6HR 7 Days #28 cap 10/11/21 Levofloxacin [Levaquin] 500 mg PO BID 14 Days #28 tab 10/11/21 Allergies Allergy/AdvReac Type Severity Reaction Status Date / Time No Known Allergies Allergy Verified 05/29/21 18:30 Review of Systems ROS Statement: Those systems with pertinent positive or pertinent negative responses have been documented in the HPI. ROS Other: All systems not noted in ROS Statement are negative. Past Medical History Past Medical History: CVA/TIA History of Any Multi-Drug Resistant Organisms: None Reported Additional Past Surgical History / Comment(s): peg tube Past Psychological History: No Psychological Hx Reported Smoking Status: Never smoker Past Alcohol Use History: None Reported Past Drug Use History: None Reported General Exam Limitations: no limitations Course Vital Signs 10/15/21 16:07 Temperature 97.7 F Pulse Rate 66 Respiratory 18 Rate Blood Pressure 121/72 O2 Sat by Pulse 98 Oximetry Disposition Clinical Impression: Closed head injury Disposition: HOME SELF-CARE Condition: Fair Instructions (If sedation given, give patient instructions): Fall Prevention for Older Adults (ED) Is patient prescribed a controlled substance at d/c from ED?: No Referrals: Carter Ferreira DO [Primary Care Provider] - 1-2 days
--- NOTE | 2021-10-15 17:16 | XR ---
EXAMINATION TYPE: XR chest 2V DATE OF EXAM: 10/15/2021 4:56 PM COMPARISON: CT chest 05/19/2019. TECHNIQUE: XR chest 2V Frontal and lateral views of the chest. CLINICAL INDICATION:Male, 81 years old with history of fall; FINDINGS: Lungs/Pleura: Airspace opacities projecting over the spine and lateral view with blunting of the cost ophrenic angle. Pulmonary vascularity: Unremarkable. Heart/mediastinum: Cardiomediastinal silhouette is unremarkable. Musculoskeletal: No acute osseous pathology. IMPRESSION: Lower lobe airspace opacities, these likely represent atelectasis given patient history of fall. Yisel elate for superimposed pneumonia. Attention on follow-up imaging if there is concern for pneumonia.
--- NOTE | 2021-10-15 17:36 | CT ---
EXAMINATION TYPE: CT brain cspine wo con CT DLP: 1345.1 mGycm, Automated exposure control for dose reduction was used. DATE OF EXAM: 10/15/2021 5:06 PM COMPARISON: None.. CLINICAL INDICATION:Male, 81 years old with history of head injury; fall TECHNIQUE: Brain: Multiple axial CT images of the brain were obtained without IV contrast. Cspine: Axial CT images from the skull base to the inferior aspect of T2 we obtained without intraven ous contrast. Coronal and sagittal reformatted images were also reviewed. FINDINGS: Brain: Extra-axial spaces: No abnormal extra-axial fluid collections. Ventricular system: Within normal limits Cerebral parenchyma: There is right frontal/temporal/parietal encephalomalacia from prior right MCA t erritory injury. No acute intraparenchymal hemorrhage or mass effect. The remainder of the maldonado-whit e junctions are well differentiated. Cerebellum: Unremarkable. Mass effect: No evidence of midline shift. Intracranial vasculature: Atherosclerotic calcifications of the intracranial vessels. Soft tissues: Normal. Calvarium/osseous structures: No depressed skull fracture. Craniotomy changes of the right calvarium. There is dural thickening at the surgical site. Paranasal sinuses and mastoid air cells: Clear. Visualized orbits: Orbital contents are intact. Cervical spine: Fracture: None. Osseous structures: Multilevel degenerative disc disease changes with endplate spurring and disc oste ophyte complex's. Vertebral alignment: Straightening of the normal cervical alignment. Spinal canal/Neural Foramina: No evidence of significant spinal canal narrowing. Facet joint uncovert ebral joint arthropathy scattered throughout the cervical spine with varying degrees of neural forami nal stenosis. Neck soft tissues: Prevertebral soft tissues are within normal limits. Other: The airway is patent. The lung apices are clear. IMPRESSION: 1. No acute intracranial process. 2. 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 3. No evidence of cervical spine fracture. 4. Moderate multilevel degenerative disc disease.
[2021-10-15 20:50] VITALS: BP 120/75; PULSE 75; RESP 20; TEMP 98.4
== END 2021-10-15 21:45 | disposition home or self-care (01) ==
LOC: EC 15:59
DX: S09.90XA Unspecified injury of head, initial encounter (principal); W18.2XXA Fall in (into) shower or empty bathtub, initial encounter; Y92.129 Unspecified place in nursing home as the place of occurrence of the external cause; Z86.73 Personal history of transient ischemic attack (TIA), and cerebral infarction without residual deficits
CPT/HCPCS: 70450; 71046; 72125; 99284

== ENCOUNTER → 2023-09-24 | Outpatient (CLI) | payer MEDICARE, OTHER ==
--- NOTE | 2023-09-24 09:46 | CT ---
EXAMINATION TYPE: CT brain wo con DATE OF EXAM: 09/24/2023 COMPARISON: 10/15/2021 HISTORY: 83-year-old male severe headache TECHNIQUE: Examination was done in axial plane without intravenous contrast. Coronal and sagittal r econstructions performed. CT DLP: 1260 mGycm Automated exposure control for dose reduction was used. FINDINGS: Redemonstrated craniotomy flap along the right frontal convexity. Underlying patchy encephalomalacia right frontal temporal and also within the anterior right parietal lobe towards the vertex. There is no evidence of acute intracranial hemorrhage, acute ischemic changes, mass, mass-effect, or extra-axial fluid collection. There is no effacement of cerebral sulci or basal subarachnoid cister ns. There is no hydrocephalus. There is no midline shift. Singh-white matter distinction is preserv ed. Paranasal sinuses and mastoid air cells are well pneumatized. Orbits and globes are intact. IMPRESSION: Similar appearance to the right frontal craniotomy flap with underlying encephalomalacia and volume l oss. No acute intracranial abnormality seen.
== END | disposition home or self-care (01) ==
LOC: RADCTMAIN 08:27
PROVIDERS: ATTEND Family Medicine
DX: G93.89 Other specified disorders of brain (principal)
CPT/HCPCS: 70450

== ENCOUNTER 2023-12-15 16:31 | Inpatient (IN) | payer MEDICARE, OTHER ==
--- NOTE | 2023-12-15 17:18 | ED ---
General Adult HPI - General Chief complaint: Extremity Injury, Lower Stated complaint: Fall-L leg injury Time Seen by Provider: 12/15/23 17:17 Source: patient, EMS Mode of arrival: EMS Limitations: altered mental status, physical limitation - History of Present Illness Initial comments: Patient sent to the ED from [facility] by ambulance for evaluation status post fall. Per alf report, the patient fell 2 days ago, and he has been complaining of having left hip pain since then. X-rays were obtained at the alf, which demonstrates suspected left hip fracture. Patient is noted to be hypoxic and wheezing on arrival to the ED (he has placed on supplemental oxygen with improvement in his O2 sat reading). Patient has dem entia, and as such, history from the patient is very limited. Patient points to his left hip when asked where he is having pain. Patient is otherwise unable to provide any useful history at this time. Patient is not reportedly on any blood thinners. - Related Data Home Medications Medication Instructions Recorded Confirmed Acetaminophen Extra Strength 500 mg PO DAILY 05/29/21 10/15/21 Liquid 500mg/15ml Acetaminophen Extra Strength 500 mg PO Q6H PRN 05/29/21 10/15/21 Liquid 500mg/15ml Albuterol Nebulized [Ventolin 2.5 mg INHALATION RT-Q4H PRN 05/29/21 10/15/21 Nebulized] Ammonium Lactate Cream [Lac-Hydrin 1 applic TOPICAL DAILY@1400 05/29/21 10/15/21 12% Cream] Aspirin 81 mg PO DAILY 05/29/21 10/15/21 Atorvastatin Calcium [Lipitor] 80 mg PO HS 05/29/21 10/15/21 Cholecalciferol [Vitamin D3 (25 50 mcg PO DAILY 05/29/21 10/15/21 Mcg = 1000 Iu)] Enoxaparin Sodium 40 mg SQ DAILY 05/29/21 10/15/21 Menthol [Biofreeze] 1 applic TOPICAL TID 05/29/21 10/15/21 Multivitamins, Thera Liquid 5 ml PO DAILY 05/29/21 10/15/21 [Theragran Liquid (formulary)] Sennosides [Senna] 8.6 mg PO BID 05/29/21 10/15/21 Sennosides-Docusate Sodium 2 tab PO DAILY@1400 05/29/21 10/15/21 [Senokot-S] Tamsulosin [Flomax] 0.4 mg PO HS 05/29/21 10/15/21 levETIRAcetam [Keppra Oral 500 mg PO DAILY 05/29/21 10/15/21 Solution] traMADol HCl [Ultram] 50 mg PO Q12H PRN 05/29/21 10/15/21 Cephalexin [Keflex] 500 mg PO Q6H 10/15/21 10/15/21 Healthshake 1 can PO TID@0700,1200,1700 10/15/21 10/15/21 Levofloxacin [Levaquin] 500 mg PO BID@0800,1600 10/15/21 10/15/21 Magnesium Hydroxide [Milk of 400 mg PO DAILY PRN 10/15/21 10/15/21 Magnesia] Menthol [Biofreeze] 1 applic TOPICAL Q4H PRN 10/15/21 10/15/21 Vision Vitamins Tablet 1 tab PO DAILY@1400 10/15/21 10/15/21 Allergies Allergy/AdvReac Type Severity Reaction Status Date / Time No Known Allergies Allergy Verified 12/15/23 16:54 Review of Systems ROS Statement: Those systems with pertinent positive or pertinent negative responses have been documented in the HPI. ROS Other: All systems not noted in ROS Statement are negative. Limitations: ROS unobtainable due to patients medical condition Past Medical History Past Medical History: COPD, CVA/TIA, Dementia, Hyperlipidemia, Hypertension, Osteoarthritis (OA) Additional Past Medical History / Comment(s): left hand contracture, hemiparesis, mild cognitive impairment, BPH History of Any Multi-Drug Resistant Organisms: None Reported Additional Past Surgical History / Comment(s): peg tube Past Psychological History: Anxiety Smoking Status: Never smoker Past Alcohol Use History: None Reported Past Drug Use History: None Reported General Exam Limitations: altered mental status, physical limitation General appearance: alert Head exam: Present: atraumatic Eye exam: Present: normal appearance, PERRL ENT exam: Present: mucous membranes moist, TM's normal bilaterally Neck exam: Present: other (Trachea is in midline). Absent: tenderness Respiratory exam: Present: wheezes, prolonged expiratory. Absent: rales, rhonchi, stridor Cardiovascular Exam: Present: regular rate, normal rhythm, normal heart sounds, other (Normal radial and dorsalis pedis pulses bilaterally) GI/Abdominal exam: Present: soft. Absent: tenderness, guarding Extremities exam: Present: other (Left lower extremity is shortened at rest; left hip tenderness; pelvis is stable) Back exam: Absent: tenderness Neurological exam: Present: alert Skin exam: Present: warm, dry, intact, normal color Course Vital Signs 12/15/23 12/15/23 12/15/23 16:41 17:30 18:00 Temperature 99.2 F Pulse Rate 82 78 76 Respiratory 22 20 20 Rate Blood Pressure 119/69 108/96 95/73 O2 Sat by Pulse 77 L 95 94 L Oximetry 12/15/23 12/15/23 12/15/23 18:30 19:00 20:11 Temperature Pulse Rate 78 71 84 Respiratory 20 20 Rate Blood Pressure 105/57 115/73 O2 Sat by Pulse 96 95 Oximetry 12/15/23 12/15/23 12/15/23 20:21 21:27 21:58 Temperature Pulse Rate 86 80 82 Respiratory 22 16 Rate Blood Pressure 126/73 118/76 O2 Sat by Pulse 91 L 92 L Oximetry - Reevaluation(s) Reevaluation #1: 12/15/23 22:22 Case, H&P, test results and ED management thus far were discussed with Dr. Christiansen who accepts hospital admission. He agrees with orthopedic surgery consultation. He has no further recommendations at this time. 12/15/23 22:50 Case, H&P, test results, ED management thus far and my discussion with Dr. Christiansen as above were discussed with Dr. Quinn (orthopedic surgery). He agrees to see the patient in consultation. He has no further recommendations at this time. EKG Findings - EKG Comments: EKG Findings:: ED physician interpretation (interpreted by me): Normal sinus rhythm, ventricular of 70 bpm, no ectopy, incomplete right bundle branch block, normal GA and QRS intervals, normal QT interval, normal axis, no ST or T wave abnormality Medical Decision Making - Medical Decision Making Was pt. sent in by a medical professional or institution (, PA, FOOD AND NUTRITION SERVICES SUPERVISOR, urgent c are, hospital, or alf...) When possible be specific @ -No Did you speak to anyone other than the patient for history (EMS, parent, family, police, friend...)? What history was obtained from this source @ -History was obtained from alf report. Did you review nursing and triage notes (agree or disagree)? Why? @ -I reviewed and agree with nursing and triage notes Were old charts reviewed (outside hosp., previous admission, EMS record, old EKG, old radiological studies, urgent care reports/EKG's, alf records)? Report findings @ -No old charts were reviewed Differential Diagnosis (chest pain, altered mental status, abdominal pain women, abdominal pain men, vaginal bleeding, weakness, fever, dyspnea, syncope, headache, dizziness, GI bleed, back pain, seizure, CVA, palpatations, mental health, musculoskeletal)? @ -Differential Dyspnea: Coronary syndrome, arrhythmia, asthma, COPD, pneumonia, pneumothorax, pleural effusion, CHF, hypoxia, anemia, neuromuscular, fall, sprain, strain, fracture, dislocation, contusion, this is not meant to be an all-inclusive list. EKG interpreted by me (3pts min.). @ -As above X-rays interpreted by me (1pt min.). @ -Patient's chest x-ray was reviewed myself and demonstrates left basilar airspace opacity and pleural effusion. I agree with the radiologist's interpretation as above. Left hip x-rays were reviewed myself and are suggestive of impacted left femoral neck fracture. I agree with the radiologist's interpretation as above. CT interpreted by me (1pt min.). @ -Noncontrast head CT was reviewed myself and shows no acute intracranial abnormality. I agree with the radiologist's interpretation as above. Non contrast left hip CT was reviewed myself and demonstrates impacted left head/femoral neck fractures. I agree with the radiologist's interpretation as above. U/S interpreted by me (1pt. min.). @ -None done What testing was considered but not performed or refused? (CT, X-rays, U/S, labs)? Why? @ -None What meds were considered but not given or refused? Why? @ -None Did you discuss the management of the patient with other professionals (professionals i.e. , PA, FOOD AND NUTRITION SERVICES SUPERVISOR, lab, RT, psych nurse, social service liaison, media supervisor, teacher, sheriffs officer, case advocate)? Give summary @ -As above. Was smoking cessation discussed for >3mins.? @ -No Was critical care preformed (if so, how long)? @ -No Were there social determinants of health that impacted care today? How? (Homelessness, low income, unemployed, alcoholism, drug addiction, transportation, low edu. Level, literacy, decrease access to med. care, intermediate, rehab)? @ -No Was there de-escalation of care discussed even if they declined (Discuss DNR or withdrawal of care, Hospice)? DNR status @ -No What co-morbidities impacted this encounter? (DM, HTN, Smoking, COPD, CAD, Cancer, CVA, ARF, Chemo, Hep., AIDS, mental health diagnosis, sleep apnea, morbid obesity)? @ -None Was patient admitted / discharged? Hospital course, mention meds given and route, prescriptions, significant lab abnormalities, going to OR and other pertinent info. @ -Patient presented to the ED with hypoxia and COPD exacerbation. Patient's breathing and hypoxia improved with DuoNeb treatment and supplemental oxygen therapy. Chest x-ray reveals findings of left basilar pneumonia and pleural effusion. Patient has been treated with IV antibiotics. Left hip imaging demonstrates impacted femoral head/neck fractures. Dr. Quinn (orthopedic surgery) has been consulted. Will admit the patient to the hospital for further evaluation and management. Dr. Christiansen has accepted hospital admission. Undiagnosed new problem with uncertain prognosis? @ -No Drug Therapy requiring intensive monitoring for toxicity (Heparin, Nitro, Insulin, Cardizem)? @ -No Were any procedures done? @ -No Diagnosis/symptom? @ -COPD exacerbation Acute, or Chronic, or Acute on Chronic? @ -Default Uncomplicated (without systemic symptoms) or Complicated (systemic symptoms)? @ -Default Side effects of treatment? @ -No Exacerbation, Progression, or Severe Exacerbation? @ -No Poses a threat to life or bodily function? How? (Chest pain, USA, NC, pneumonia, PE, COPD, DKA, ARF, appy, cholecystitis, CVA, Diverticulitis, Homicidal, Suicidal, threat to staff... and all critical care pts) @ -No Diagnosis/symptom? @ -Suspected left basilar pneumonia Acute, or Chronic, or Acute on Chronic? @ -Default Uncomplicated (without systemic symptoms) or Complicated (systemic symptoms)? @ -Default Side effects of treatment? @ -None Exacerbation, Progression, or Severe Exacerbation] @ -No Poses a threat to life or bodily function? @ -No Diagnosis/symptom? @ -Left hip fracture Acute, or Chronic, or Acute on Chronic? @ -Acute Uncomplicated (without systemic symptoms) or Complicated (systemic symptoms)? @ -Default Side effects of treatment? @ -None Exacerbation, Progression, or Severe Exacerbation] @ -No Poses a threat to life or bodily function? @ -No - Lab Data Result diagrams: 12/15/23 18:19 12/15/23 18:19 Lab Results 12/15/23 12/15/23 12/15/23 Range/Units 18:19 18:19 18:19 WBC 9.2 (3.8-10.6) k/uL RBC 4.03 L (4.30-5.90) m/uL Hgb 11.7 L (13.0-17.5) gm/dL Hct 36.2 L (39.0-53.0) % MCV 89.9 (80.0-100.0) fL MCH 28.9 (25.0-35.0) pg MCHC 32.2 (31.0-37.0) g/dL RDW 14.2 (11.5-15.5) % Plt Count 194 (150-450) k/uL MPV 7.6 Neutrophils % 75 % Lymphocytes % 12 % Monocytes % 5 % Eosinophils % 7 % Basophils % 0 % Neutrophils # 6.8 (1.3-7.7) k/uL Lymphocytes # 1.1 (1.0-4.8) k/uL Monocytes # 0.5 (0-1.0) k/uL Eosinophils # 0.6 (0-0.7) k/uL Basophils # 0.0 (0-0.2) k/uL Hypochromasia Moderate PT 12.7 H (10.0-12.5) sec INR 1.2 H (<1.2) APTT 29.5 (22.0-30.0) sec Sodium 132 L (137-145) mmol/L Potassium 5.0 (3.5-5.1) mmol/L Chloride 102 (98-107) mmol/L Carbon Dioxide 29 (22-30) mmol/L Anion Gap 1 mmol/L BUN 23 H (9-20) mg/dL Creatinine 0.91 (0.66-1.25) mg/dL Est GFR (CKD-EPI)AfAm >90 (>60 ml/min/1.73 sqM) Est GFR (CKD-EPI)NonAf 79 (>60 ml/min/1.73 sqM) Glucose 85 (74-99) mg/dL Calcium 8.6 (8.4-10.2) mg/dL Total Bilirubin 0.8 (0.2-1.3) mg/dL AST 29 (17-59) U/L ALT 14 (4-49) U/L Alkaline Phosphatase 65 (38-126) U/L Troponin I (0.000-0.034) ng/mL NT-Pro-B Natriuret Pep 670 pg/mL Total Protein 6.1 L (6.3-8.2) g/dL Albumin 3.3 L (3.5-5.0) g/dL Influenza Type A (PCR) (Not Detectd) Influenza Type B (PCR) (Not Detectd) RSV (PCR) (Not Detectd) SARS-CoV-2 (PCR) (Not Detectd) 12/15/23 12/15/23 Range/Units 18:19 18:19 WBC (3.8-10.6) k/uL RBC (4.30-5.90) m/uL Hgb (13.0-17.5) gm/dL Hct (39.0-53.0) % MCV (80.0-100.0) fL MCH (25.0-35.0) pg MCHC (31.0-37.0) g/dL RDW (11.5-15.5) % Plt Count (150-450) k/uL MPV Neutrophils % % Lymphocytes % % Monocytes % % Eosinophils % % Basophils % % Neutrophils # (1.3-7.7) k/uL Lymphocytes # (1.0-4.8) k/uL Monocytes # (0-1.0) k/uL Eosinophils # (0-0.7) k/uL Basophils # (0-0.2) k/uL Hypochromasia PT (10.0-12.5) sec INR (<1.2) APTT (22.0-30.0) sec Sodium (137-145) mmol/L Potassium (3.5-5.1) mmol/L Chloride (98-107) mmol/L Carbon Dioxide (22-30) mmol/L Anion Gap mmol/L BUN (9-20) mg/dL Creatinine (0.66-1.25) mg/dL Est GFR (CKD-EPI)AfAm (>60 ml/min/1.73 sqM) Est GFR (CKD-EPI)NonAf (>60 ml/min/1.73 sqM) Glucose (74-99) mg/dL Calcium (8.4-10.2) mg/dL Total Bilirubin (0.2-1.3) mg/dL AST (17-59) U/L ALT (4-49) U/L Alkaline Phosphatase (38-126) U/L Troponin I 0.015 (0.000-0.034) ng/mL NT-Pro-B Natriuret Pep pg/mL Total Protein (6.3-8.2) g/dL Albumin (3.5-5.0) g/dL Influenza Type A (PCR) Not Detected (Not Detectd) Influenza Type B (PCR) Not Detected (Not Detectd) RSV (PCR) Not Detected (Not Detectd) SARS-CoV-2 (PCR) Not Detected (Not Detectd) - Radiology Data Chest x-ray: Left basilar pneumonia and pleural effusion suspected. Left hip x-rays: Worrisome for impacted left femoral neck fracture. Noncontrast head CT: No acute intracranial process. Right frontal craniotomy flap appears similar to prior. Underlying encephalomalacia and volume loss centrally. Noncontrast left hip CT: Acute compression fracture of femoral neck and femoral head in near anatomic alignment. Disposition Clinical Impression: Fall, COPD exacerbation, Closed left hip fracture Narrative: Possible pneumonia Disposition: ADMITTED IP TO THIS HOSP Condition: Stable Is patient prescribed a controlled substance at d/c from ED?: No Time of Disposition: 22:24
[2023-12-15] MEDS: methylPREDNISolone SOD SUCCI 125 MG/2 ML VIAL IV STA (18:30)
[2023-12-15] MEDS: MORPHINE SULFATE 4 MG/ML SYRINGE IVP STA (18:31)
[2023-12-15 18:47] LABS: Basophils % (A) 0 %; Eosinophils # (A) 0.6 k/uL (0-0.7); Eosinophils % (A) 7 %; HCT 36.2 % (39.0-53.0); HGB 11.7 gm/dL (13.0-17.5); Hypochromasia Moderate; Lymphocytes # (A) 1.1 k/uL (1.0-4.8); Lymphocytes % (A) 12 %; MCH 28.9 pg (25.0-35.0); MCHC 32.2 g/dL (31.0-37.0); MCV 89.9 fL (80.0-100.0); Mean Platelet Volume 7.6; Monocytes # (A) 0.5 k/uL (0-1.0); Monocytes % (A) 5 %; Neutrophils # (A) 6.8 k/uL (1.3-7.7); Neutrophils % (A) 75 %; Platelet Count 194 k/uL (150-450); RBC 4.03 m/uL (4.30-5.90); RDW 14.2 % (11.5-15.5); WBC 9.2 k/uL (3.8-10.6)
[2023-12-15 19:01] LABS: ALT 14 U/L (4-49); AST 29 U/L (17-59); African American GFR (CKD) >90 (>60 ml/min/1.73 sqM); Albumin 3.3 g/dL (3.5-5.0); Anion Gap 1 mmol/L; Blood Urea Nitrogen 23 mg/dL (9-20); Calcium 8.6 mg/dL (8.4-10.2); Carbon Dioxide 29 mmol/L (22-30); Chloride 102 mmol/L (98-107); Glucose 85 mg/dL (74-99); Non-African American GFR(CKD) 79 (>60 ml/min/1.73 sqM); Sodium 132 mmol/L (137-145); Total Bilirubin 0.8 mg/dL (0.2-1.3); Total Protein 6.1 g/dL (6.3-8.2)
[2023-12-15 19:02] LABS: Alkaline Phosphatase 65 U/L (38-126)
[2023-12-15 19:08] LABS: NT-Pro-B-Type Natriuretic Pept 670 pg/mL
--- NOTE | 2023-12-15 19:19 | XR ---
EXAMINATION TYPE: XR chest 1V portable DATE OF EXAM: 12/15/2023 7:03 PM CLINICAL INDICATION:Male, 83 years old with history of hypoxia, wheezing; PHH COMPARISON: Chest radiograph from 10/15/2021 TECHNIQUE: XR chest 1V portable Frontal view of the chest. FINDINGS: Lungs/Pleura: Airspace disease obscures the left hemidiaphragm. Right lung is grossly clear. Pulmonary vascularity: Pulmonary venous congestion is present. Heart/mediastinum: Mild cardiomegaly.. Musculoskeletal: No acute osseous pathology. Other findings: None Lines/Tubes: IMPRESSION: Left base pneumonia and pleural effusion suspected.
--- NOTE | 2023-12-15 19:27 | CT ---
EXAMINATION TYPE: CT brain wo con CT DLP: 1243.4 mGycm, Automated exposure control for dose reduction was used. DATE OF EXAM: 12/15/2023 6:56 PM COMPARISON: CT brain 09/24/2023. CLINICAL INDICATION:Male, 83 years old with history of Fall, dementia, AMS, hx of dementia. Fall. Ini tial encounter. TECHNIQUE: Brain: Axial CT images of the brain were obtained with coronal and sagittal reformats created and rev iewed. Contrast used: None. Oral contrast used: None. FINDINGS: Brain: Extra-axial spaces: No abnormal extra-axial fluid collections. Ventricular system: Within normal limits Cerebral parenchyma: No acute intraparenchymal hemorrhage or mass effect. The maldonado-white junction is well differentiated. Cerebellum: Unremarkable. Mass effect: No evidence of midline shift. Intracranial vasculature: unremarkable Soft tissues: Normal. Calvarium/osseous structures: No depressed skull fracture. Right frontal craniotomy flap appears si milar to prior. Underlying encephalomalacia and volume loss centrally Paranasal sinuses and mastoid air cells: Mild scattered paranasal sinus disease. Visualized orbits: Orbital contents are intact. IMPRESSION: No acute intracranial process. Right frontal craniotomy flap appears similar to prior. Underlying encephalomalacia and volume loss c entrally
[2023-12-15 19:34] LABS: INR 1.2 (<1.2); Partial Thromboplastin Time 29.5 sec (22.0-30.0); Prothrombin Time 12.7 sec (10.0-12.5)
--- NOTE | 2023-12-15 19:51 | XR ---
EXAMINATION TYPE: XR Hip Complete LT DATE OF EXAM: 12/15/2023 7:03 PM CLINICAL INDICATION:Male, 83 years old with history of fall, left hip pain; PHH. Initial encounter. COMPARISON: None. TECHNIQUE: XR Hip Complete LT; hip was examined in the frontal and lateral projections and a AP pelvi s. FINDINGS: Visibility is poor due to abundant soft tissues and poor x-ray penetration. Reticular netw ork of bone marrow is poorly visible. There is a suspected impacted femoral neck fracture dheeraj moran. CT follow-up would be helpful. IMPRESSION: Worrisome for impacted left femoral neck fracture.
[2023-12-15] MEDS: IPRATROPIUM-ALBUTEROL 3 ML NEB INHALATION STA (20:11)
[2023-12-15] MEDS: AZITHROMYCIN 500 MG in SODIUM CHLORIDE 0.9% 250 ML IVPB STA (20:33)
--- NOTE | 2023-12-15 21:41 | CT ---
EXAMINATION TYPE: CT hip LT wo con CT DLP: 668.5 mGycm, Automated exposure control for dose reduction was used. DATE OF EXAM: 12/15/2023 9:31 PM COMPARISON: . Extremity radiograph same day. CLINICAL INDICATION:Male, 83 years old with history of Abnormal left hip x-rays; left hip pain; PHH, LEFT HIP PAIN TECHNIQUE: Axial images were obtained of the CT hip LT wo con, Additional coronal and sagittal reform atted images and soft tissue and bone window were obtained for review. 3-D reconstruction was created on a separate workstation. Contrast used: mL of , (None if empty) Oral contrast used: (None if empty) FINDINGS: Osteoporosis limits sensitivity. Subtle impaction fracture of the left femoral neck into the left femoral head. Cortical offset is present along the anterolateral margin of the femoral head and neck. No hip dislocation. Alignment/position appears anatomic. The 3-D findings confirm the 2-D impression IMPRESSION: Acute compression fracture or femoral neck and femoral head in near anatomic alignment.
[2023-12-15] MEDS ORDERED: NALOXONE 0.4 MG/ML 1 ML VIAL IV PRN (22:24)
[2023-12-15] MEDS: MORPHINE SULFATE 4 MG/ML SYRINGE IV PRN (22:41)
[2023-12-16 07:29] LABS: Basophils % (A) 0 %; Eosinophils % (A) 0 %; HCT 34.3 % (39.0-53.0); HGB 10.8 gm/dL (13.0-17.5); Hypochromasia Slight; Lymphocytes # (A) 0.5 k/uL (1.0-4.8); Lymphocytes % (A) 13 %; MCH 28.4 pg (25.0-35.0); MCHC 31.4 g/dL (31.0-37.0); MCV 90.5 fL (80.0-100.0); Mean Platelet Volume 8.4; Monocytes # (A) 0.1 k/uL (0-1.0); Monocytes % (A) 3 %; Neutrophils # (A) 3.4 k/uL (1.3-7.7); Neutrophils % (A) 84 %; Platelet Count 197 k/uL (150-450); RBC 3.79 m/uL (4.30-5.90); RDW 14.3 % (11.5-15.5)
[2023-12-16 07:43] LABS: ALT 13 U/L (4-49); AST 19 U/L (17-59); African American GFR (CKD) >90 (>60 ml/min/1.73 sqM); Albumin 3.3 g/dL (3.5-5.0); Alkaline Phosphatase 70 U/L (38-126); Anion Gap 4 mmol/L; Blood Urea Nitrogen 23 mg/dL (9-20); Calcium 8.7 mg/dL (8.4-10.2); Carbon Dioxide 26 mmol/L (22-30); Chloride 100 mmol/L (98-107); Glucose 126 mg/dL (74-99); Non-African American GFR(CKD) 83 (>60 ml/min/1.73 sqM); Sodium 130 mmol/L (137-145); Total Bilirubin 0.5 mg/dL (0.2-1.3); Total Protein 5.9 g/dL (6.3-8.2)
[2023-12-16] MEDS ORDERED: ALBUTEROL NEBULIZED 2.5 MG/3 ML INHALATION PRN (09:55)
[2023-12-16] MEDS: levETIRAcetam ORAL SOLN 500 MG/5 ML CUP PO SCH (10:44)
[2023-12-16] MEDS: ENOXAPARIN 40 MG/0.4 ML SYRINGE SQ SCH (10:44)
--- NOTE | 2023-12-16 11:27 | P.CNOR ---
History of Present Illness - HPI Consult date: 12/16/23 History of present illness: This is an 83-year-old male who is admitted for a left hip fracture. Patient's past medical history significant for dementia, hyperlipidemia, hypertension, history of CVA/TIA with hemiparesis and COPD. Patient is seen and evaluated at bedside in the emergency room today. Patient is pleasantly confused and unable to give a history. There is no family present in the room today. Per nursing the patient fell at [facility] where he is a resident. X-rays and a CT done in the emergency room reveal an impacted left femoral neck fracture. Patient is currently on IV antibiotics for pneumonia and pleural effusion. Review of Systems ROS unobtainable: due to mental status Past Medical History Past Medical History: COPD, CVA/TIA, Dementia, Hyperlipidemia, Hypertension, Osteoarthritis (OA) Additional Past Medical History / Comment(s): left hand contracture, hemiparesis, mild cognitive impairment, BPH History of Any Multi-Drug Resistant Organisms: None Reported Additional Past Surgical History / Comment(s): peg tube Past Psychological History: Anxiety Smoking Status: Never smoker Past Alcohol Use History: None Reported Past Drug Use History: None Reported Medications and Allergies Home Medications Medication Instructions Recorded Confirmed Type Albuterol Nebulized [Ventolin 2.5 mg INHALATION RT-Q4H PRN 05/29/21 12/16/23 History Nebulized] Aspirin 81 mg PO DAILY 05/29/21 12/16/23 History Atorvastatin Calcium [Lipitor] 80 mg PO HS 05/29/21 12/16/23 History Cholecalciferol [Vitamin D3 (25 50 mcg PO DAILY 05/29/21 12/16/23 History Mcg = 1000 Iu)] Menthol [Biofreeze] 1 applic TOPICAL TID 05/29/21 12/16/23 History Sennosides [Senna] 8.6 mg PO BID 05/29/21 12/16/23 History Sennosides-Docusate Sodium 2 tab PO HS 05/29/21 12/16/23 History [Senokot-S] Tamsulosin [Flomax] 0.4 mg PO HS 05/29/21 12/16/23 History Vision Vitamins Tablet 1 tab PO HS 10/15/21 12/16/23 History Acetaminophen [Tylenol Arthritis] 650 mg PO Q12HR@0800,199912/16/23 12/16/23 History Apixaban [Eliquis] 5 mg PO BID@0800,1600 12/16/23 12/16/23 History Multivitamins, Thera [Multivitamin 1 tab PO DAILY 12/16/23 12/16/23 History (formulary)] Naloxone HCl [Narcan] 4 mg NASAL DIRECTED PRN 12/16/23 12/16/23 History Tramadol 100mg 1 tab PO Q6H 12/16/23 12/16/23 History Allergies Allergy/AdvReac Type Severity Reaction Status Date / Time No Known Allergies Allergy Verified 12/16/23 10:54 Physical Examination On exam patient is resting comfortably in bed in no acute distress. Patient is pleasantly confused. Lower extremity exam: Patient appears to have discomfort with logroll of the left lower extremity. Skin is intact to bilateral lower extremities. Calves are soft and nontender to bilateral lower extremities. Patient has difficulty following commands, but does move bilateral feet and ankles. Bilateral lower extremities are warm and well-perfused. Patient is moving bilateral upper extremities freely. Head is atraumatic and normocephalic. Results X-rays of the left hip along with a CT of the left hip reveal an impacted left femoral neck fracture. - Labs Labs: Abnormal Lab Results - Last 24 Hours (Table) 12/15/23 12/15/23 12/15/23 Range/Units 18:19 18:19 18:19 RBC 4.03 L (4.30-5.90) m/uL Hgb 11.7 L (13.0-17.5) gm/dL Hct 36.2 L (39.0-53.0) % Lymphocytes # (1.0-4.8) k/uL PT 12.7 H (10.0-12.5) sec INR 1.2 H (<1.2) Sodium 132 L (137-145) mmol/L BUN 23 H (9-20) mg/dL Glucose (74-99) mg/dL Total Protein 6.1 L (6.3-8.2) g/dL Albumin 3.3 L (3.5-5.0) g/dL 12/16/23 12/16/23 Range/Units 07:03 07:03 RBC 3.79 L (4.30-5.90) m/uL Hgb 10.8 L (13.0-17.5) gm/dL Hct 34.3 L (39.0-53.0) % Lymphocytes # 0.5 L (1.0-4.8) k/uL PT (10.0-12.5) sec INR (<1.2) Sodium 130 L (137-145) mmol/L BUN 23 H (9-20) mg/dL Glucose 126 H (74-99) mg/dL Total Protein 5.9 L (6.3-8.2) g/dL Albumin 3.3 L (3.5-5.0) g/dL H & H 12/15/23 12/16/23 Range/Units 18:19 07:03 Hgb 11.7 L 10.8 L (13.0-17.5) gm/dL Hct 36.2 L 34.3 L (39.0-53.0) % Coagulation 12/15/23 Range/Units 18:19 INR 1.2 H (<1.2) Result Diagrams: 12/16/23 07:03 12/16/23 07:03 Assessment and Plan (1) COPD exacerbation Current Visit: Yes Status: Acute Code(s): J44.1 - CHRONIC OBSTRUCTIVE PULMONARY DISEASE W (ACUTE) EXACERBATION SNOMED Code(s): 712303492 (2) Closed left hip fracture Current Visit: Yes Status: Acute Code(s): S72.002A - FRACTURE OF UNSP PART O F NECK OF LEFT FEMUR, INIT SNOMED Code(s): 500732708 (3) Fall Current Visit: Yes Status: Acute Code(s): W19.XXXA - UNSPECIFIED FALL, INITIAL ENCOUNTER SNOMED Code(s): 0514429 Plan: 1. N.p.o. after midnight. 2. Continue bedrest and pain control. 3. Appreciate input from internal medicine. 4. Planning for left hip hemiarthroplasty with direct anterior approach on 12/17/[address] Estrada pending medical clearance and consent.
[2023-12-16] MEDS ORDERED: LACTULOSE 20 GM/30 ML CUP PO PRN (11:47)
[2023-12-16] MEDS ORDERED: CALCIUM CARBONATE 500 MG CHEWABLE PO PRN (11:47)
[2023-12-16] MEDS ORDERED: PROCHLORPERAZINE 5 MG TAB PO PRN (11:47)
[2023-12-16] MEDS ORDERED: ALPRAZolam 0.25 MG TAB PO PRN (11:47)
[2023-12-16] MEDS ORDERED: [UNRECOGNIZED DRUG - OTHER] PO SCH (12:00)
[2023-12-16] MEDS: SENNOSIDES-DOCUSATE SODIUM 1 EACH TAB PO SCH (14:04)
[2023-12-16] MEDS: IPRATROPIUM-ALBUTEROL 3 ML NEB INHALATION SCH (16:49)
[2023-12-16] MEDS: AZITHROMYCIN 500 MG TAB PO SCH (17:04)
--- NOTE | 2023-12-16 17:23 | P.HPIM ---
History of Present Illness H&P Date: 12/16/23 Chief Complaint: Left hip pain This is a pleasant 83-year-old patient, resident of [facility]. Follows Dr. Ferreira. 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 Mild cognitive impairment. Patient had a fall 2 days ago. Complaining of pain in the left hip. Appetite is fair. Bowels are fine. Patient is able to answer simple questions. Found to have left hip fracture. Eliquis held. Patient nonambulatory. Denies any chest pain or shortness of breath. Patient is slow to answer questions but able to answer them. Review of systems: GEN.: Tired EYES: None HEENT: None NECK: None RESPIRATORY: [Congested cough, slight wheezing CARDIOVASCULAR: None GASTROINTESTINAL: None GENITOURINARY: None MUSCULOSKELETAL: Left hip pain LYMPHATICS: None HEMATOLOGICAL: None PSYCHIATRY: None NEUROLOGICAL: Contracture left forearm Social history: No smoking. No alcohol. Resident of [facility]. Physical examination: VITAL SIGNS: [Afebrile, 63, 18, 133/75, 95% on 3 L] GENERAL: [BMI 30.7, reclining bed, congested cough]. EYES: [Pupils equal. Conjunctiva maribel]l. HEENT: [External appearance of nose and ears normal, oral cavity grossly normal]. NECK: [JVD not raised; masses not palpable]. HEART: [First and second heart sounds are normal; no edema]. LUNGS:[ Respiratory rate increased, decreased breath sounds some coarse crackles]. ABDOMEN: [Soft, nontender, liver spleen not palpable, no masses palpable]. PSYCH: [Awake, able to answer simple questions a]l. MUSCULOSKELETAL:No Clubbing/cyanosis;muscles-grossly intact. OA. Limited range of motion left hip NEUROLOGICAL: [Cranial nerves grossly intact; no facial asymmetry, left forearm contracture. LYMPHATICS: [No lymph nodes palpable in the axilla and neck] INVESTIGATIONS, reviewed in the clinical context: December 16, 2023: White count 4 hemoglobin 10.8 platelets 197 sodium 130 potassium 5 BUN 23 creatinine 0.83 Influenza type A, type B, RSV, COVID-19: Not detected EKG tracing personally reviewed by me-normal sinus rhythm. Chest x-ray film personally reviewed by me-left basilar infiltrate possible edema CT hip left without contrast: Acute compression fracture femoral neck and femoral head in near anatomic alignment Assessment plan: -Acute compression fracture left femoral neck, secondary to fall 2 days ago Orthopedics consulted -Left basal pneumonia suspect gram-negative organism IV ceftriaxone. Zithromax. Check procalcitonin -Probable acute congestive heart failure exacerbation IV Lasix 20 mg every 12. proBNP 670 Consult cardiology. 2D echo -Chronic medical debility. 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 Unclear why patient takes the same. Currently has been held in view of upcoming surgery. -DNR Given patient's comorbidities patient is a moderate cardiovascular, perioperative risk for surgery. Will consult cardiology. Given pneumonia will also consult pulmonary. Will discuss with Dr. Sean Quinn from orthopedics. Past Medical History Past Medical History: COPD, CVA/TIA, Dementia, Hyperlipidemia, Hypertension, Osteoarthritis (OA) Additional Past Medical History / Comment(s): left hand contracture, hemiparesis, mild cognitive impairment, BPH History of Any Multi-Drug Resistant Organisms: None Reported Additional Past Surgical History / Comment(s): peg tube Past Psychological History: Anxiety Smoking Status: Never smoker Past Alcohol Use History: None Reported Past Drug Use History: None Reported Medications and Allergies Home Medications Medication Instructions Recorded Confirmed Type Albuterol Nebulized [Ventolin 2.5 mg INHALATION RT-Q4H PRN 05/29/21 12/16/23 History Nebulized] Aspirin 81 mg PO DAILY 05/29/21 12/16/23 History Atorvastatin Calcium [Lipitor] 80 mg PO HS 05/29/21 12/16/23 History Cholecalciferol [Vitamin D3 (25 50 mcg PO DAILY 05/29/21 12/16/23 History Mcg = 1000 Iu)] Menthol [Biofreeze] 1 applic TOPICAL TID 05/29/21 12/16/23 History Sennosides [Senna] 8.6 mg PO BID 05/29/21 12/16/23 History Sennosides-Docusate Sodium 2 tab PO HS 05/29/21 12/16/23 History [Senokot-S] Tamsulosin [Flomax] 0.4 mg PO HS 05/29/21 12/16/23 History Vision Vitamins Tablet 1 tab PO HS 10/15/21 12/16/23 History Acetaminophen [Tylenol Arthritis] 650 mg PO Q12HR@0800,2000 12/16/23 12/16/23 History Apixaban [Eliquis] 5 mg PO BID@0800,1600 12/16/23 12/16/23 History Multivitamins, Thera [Multivitamin 1 tab PO DAILY 12/16/23 12/16/23 History (formulary)] Naloxone HCl [Narcan] 4 mg NASAL DIRECTED PRN 12/16/23 12/16/23 History Tramadol 100mg 1 tab PO Q6H 12/16/23 12/16/23 History Allergies Allergy/AdvReac Type Severity Reaction Status Date / Time No Known Allergies Allergy Verified 12/16/23 10:54 Physical Exam Vitals: Vital Signs Temp Pulse Resp BP Pulse Ox 12/16/23 06:35 63 18 133/73 95 12/16/23 06:00 17 124/75 94 L 12/16/23 04:00 67 17 138/81 93 L 12/16/23 02:00 64 18 137/74 92 L 12/16/23 00:00 118/76 92 L 12/15/23 23:00 107/64 93 L 12/15/23 22:00 102/63 91 L 12/15/23 21:58 82 16 118/76 92 L 12/15/23 21:27 80 22 126/73 91 L 12/15/23 20:21 86 12/15/23 20:11 84 12/15/23 20:00 103/61 95 12/15/23 19:00 71 20 115/73 95 12/15/23 18:30 78 20 105/57 96 12/15/23 18:00 76 20 95/73 94 L 12/15/23 17:30 78 20 108/96 95 12/15/23 16:41 99.2 F 82 22 119/69 77 L Intake and Output 12/15/23 12/16/23 12/16/23 22:59 06:59 14:59 Other: Weight 91.626 kg Results CBC & Chem 7: 12/16/23 07:03 12/16/23 07:03 Labs: Abnormal Lab Results - Last 24 Hours (Table) 12/15/23 12/15/23 12/15/23 Range/Units 18:19 18:19 18:19 RBC 4.03 L (4.30-5.90) m/uL Hgb 11.7 L (13.0-17.5) gm/dL Hct 36.2 L (39.0-53.0) % Lymphocytes # (1.0-4.8) k/uL PT 12.7 H (10.0-12.5) sec INR 1.2 H (<1.2) Sodium 132 L (137-145) mmol/L BUN 23 H (9-20) mg/dL Glucose (74-99) mg/dL Total Protein 6.1 L (6.3-8.2) g/dL Albumin 3.3 L (3.5-5.0) g/dL 12/16/23 12/16/23 Range/Units 07:03 07:03 RBC 3.79 L (4.30-5.90) m/uL Hgb 10.8 L (13.0-17.5) gm/dL Hct 34.3 L (39.0-53.0) % Lymphocytes # 0.5 L (1.0-4.8) k/uL PT (10.0-12.5) sec INR (<1.2) Sodium 130 L (137-145) mmol/L BUN 23 H (9-20) mg/dL Glucose 126 H (74-99) mg/dL Total Protein 5.9 L (6.3-8.2) g/dL Albumin 3.3 L (3.5-5.0) g/dL
[2023-12-16] MEDS: AMMONIUM LACTATE 12% CREAM 140 GM TUBE TOPICAL SCH (18:48)
[2023-12-16] MEDS: FUROSEMIDE 10 MG/ML 2 ML VIAL IV SCH (18:56)
[2023-12-16] MEDS: TAMSULOSIN 0.4 MG CAP.ER.24H PO SCH (20:40)
[2023-12-16] MEDS: ATORVASTATIN 80 MG TAB PO SCH (20:40)
[2023-12-16] MEDS: SENNOSIDES 8.6 MG TAB PO SCH (20:40)
--- NOTE | 2023-12-17 03:56 | P.CNPUL ---
History of Present Illness Consult date: 12/17/23 Requesting physician: Indra Christiansen Reason for consult: pneumonia Chief complaint: Fall sustaining left hip fracture History of present illness: Patient is a 83-year-old male who resides at a local [facility]. Past medical history significant for COPD, CVA/TIA with left-sided hemiparesis, dementia, hy perlipidemia, hypertension, among other things. On Thursday, the patient reportedly fell while being assisted out of bed. He hit his head on a register. Also, fell on his left side. He did have some preliminary x-rays that were concerning for left hip fracture. Patient was sent to the emergency department for evaluation on 12/15/23. On arrival, he was found to be in some respiratory distress and hypoxic, he was placed on supplemental oxygen. Initial chest x-ray showing cardiomegaly, pulmonary vascular congestion, and left basilar opacity. This could represent atelectasis or infectious process, and/or possible pleural effusion. For this reason, we were asked to evaluate the patient yesterday evening. Patient is currently in room 484. He is on 3 L/min nasal cannula, no acute respiratory distress. He is technically a poor historian. He does endorse a occasional cough with minimal mucus production. Denies fevers, chills. Denies chest pain, palpitaitons, hemoptysis. He is mostly bedridden at the [facility]. He has a left arm contracture. Dysarthric. He does reportedly have trouble swallowing thin liquids. Eliquis is listed as a home medication. He did receive follow-up imaging in regards to his fall. CT of the brain did not show any acute intracranial process. There was a prior right frontal craniotomy flap which was stable. Underlying and for encephalomalacia and volume loss centrally. Hip x-ray concerning for impacted left femoral neck fracture. Follow-up CT of the left hip confirms acute compression fracture of the femoral neck and femoral head. CBC: WBC count 4, hemoglobin 10.8, hematocrit 34.3, platelets 197. CMP: Sodium 130, potassium 5, chloride 100, serum bicarb 26, BUN 23, creatinine 0.83, glucose 126. LFTs unremarkable. Troponin 0.015. NT proBNP 670. EKG shows normal sinus rhythm with incomplete RBB pattern. No obvious acute ischemic changes. Negative for influenza, RSV, COVID. Afebrile. Hemodynamic stable. Review of Systems REVIEW OF SYSTEMS: CONSTITUTIONAL: Denies any recent significant weight loss or weight gain. EYES: Denies change in vision. EARS, NOSE, MOUTH, THROAT: Denies headaches, denies sore throat. CARDIOVASCULAR: Denies chest pain, palpitations or syncopal episodes. RESPIRATORY: See HPI GASTROINTESTINAL: Denies change in appetite, abdominal pain, nausea and vomiting, or diarrhea GENITOURINARY: Denies hematuria, denies infections. MUSKULOSKELETAL: Does report left-sided hip pain worse with leg abduction. INTEGUMENTARY: Denies rash, denies eczema. NEUROLOGICAL: Denies recent memory loss, no recent seizure activity. PSYCHIATRIC: Denies anxiety, denies depression. HEMATOLOGIC/LYMPHATIC: Denies anemia, denies enlarged lymph node Past Medical History Past Medical History: COPD, CVA/TIA, Dementia, Hyperlipidemia, Hypertension, Osteoarthritis (OA) Additional Past Medical History / Comment(s): left hand contracture, hemipa resis, mild cognitive impairment, BPH History of Any Multi-Drug Resistant Organisms: None Reported Additional Past Surgical History / Comment(s): peg tube Past Psychological History: Anxiety Smoking Status: Never smoker Past Alcohol Use History: None Reported Past Drug Use History: None Reported Medications and Allergies Home Medications Medication Instructions Recorded Confirmed Type Albuterol Nebulized [Ventolin 2.5 mg INHALATION RT-Q4H PRN 05/29/21 12/16/23 History Nebulized] Aspirin 81 mg PO DAILY 05/29/21 12/16/23 History Atorvastatin Calcium [Lipitor] 80 mg PO HS 05/29/21 12/16/23 History Cholecalciferol [Vitamin D3 (25 50 mcg PO DAILY 05/29/21 12/16/23 History Mcg = 1000 Iu)] Menthol [Biofreeze] 1 applic TOPICAL TID 05/29/21 12/16/23 History Sennosides [Senna] 8.6 mg PO BID 05/29/21 12/16/23 History Sennosides-Docusate Sodium 2 tab PO HS 05/29/21 12/16/23 History [Senokot-S] Tamsulosin [Flomax] 0.4 mg PO HS 05/29/21 12/16/23 History Vision Vitamins Tablet 1 tab PO HS 10/15/21 12/16/23 History Acetaminophen [Tylenol Arthritis] 650 mg PO Q12HR@0800,2000 12/16/23 12/16/23 History Apixaban [Eliquis] 5 mg PO BID@0800,1600 12/16/23 12/16/23 History Multivitamins, Thera [Multivitamin 1 tab PO DAILY 12/16/23 12/16/23 History (formulary)] Naloxone HCl [Narcan] 4 mg NASAL DIRECTED PRN 12/16/23 12/16/23 History Tramadol 100mg 1 tab PO Q6H 12/16/23 12/16/23 History Allergies Allergy/AdvReac Type Severity Reaction Status Date / Time No Known Allergies Allergy Verified 12/16/23 10:54 Physical Exam Vitals: Vital Signs Temp Pulse Pulse Resp BP BP Pulse Ox 12/16/23 20:40 16 12/16/23 19:50 97.7 F 66 18 124/72 95 12/16/23 16:59 84 12/16/23 16:49 84 12/16/23 16:13 98.1 F 65 20 119/71 96 12/16/23 15:15 66 16 139/82 93 L 12/16/23 10:25 72 20 132/86 92 L 12/16/23 06:35 63 18 133/73 95 12/16/23 06:00 17 124/75 94 L 12/16/23 04:00 67 17 138/81 93 L Intake and Output 12/16/23 12/16/23 12/17/23 14:59 22:59 06:59 Other: Voiding Method External Catheter # Voids 2 GENERAL EXAM: Alert, 83-year-old white male, lying slightly on his left side, left arm contracture noted, fairly comfortable in no apparent distress. HEAD: Normocephalic and atraumatic EYES: Normal reaction of pupils, equal size. NOSE: Clear with pink turbinates. THROAT: No erythema or exudates. NECK: No masses, no JVD. CHEST: No chest wall deformity. LUNGS: Equal air entry with shallow breathing with limited chest excursion, dimi nished lung sounds bilaterally especially at the bases. No crackles, wheeze, rhonchi. On 3 L/min nasal cannula. No conversational dyspnea or accessory muscle use while at rest CVS: S1 and S2 normal with no audible murmur, regular rhythm. No extra heart sounds ABDOMEN: No hepatosplenomegaly, active bowel sounds, no guarding or rigidity. SPINE: No scoliosis or deformity SKIN: No rashes CENTRAL NERVOUS SYSTEM: Alert and oriented x 3, dysarthric, facial symmetry, left sided hemiparesis and and left arm contracture, right upper and lower extremity strength graded 4/5. EXTREMITIES: There is no peripheral edema, clubbing, or cyanosis. Peripheral pulses are intact. Results - Laboratory Findings CBC and BMP: 12/16/23 07:03 12/16/23 07:03 PT/INR, D-dimer PT 12.7 sec (10.0-12.5) H 12/15/23 18:19 INR 1.2 (<1.2) H 12/15/23 18:19 Abnormal lab findings: Abnormal Labs 12/15/23 12/15/23 12/15/23 18:19 18:19 18:19 RBC 4.03 L Hgb 11.7 L Hct 36.2 L Lymphocytes # PT 12.7 H INR 1.2 H Sodium 132 L BUN 23 H Glucose Total Protein 6.1 L Albumin 3.3 L 12/16/23 12/16/23 07:03 07:03 RBC 3.79 L Hgb 10.8 L Hct 34.3 L Lymphocytes # 0.5 L PT INR Sodium 130 L BUN 23 H Glucose 126 H Total Protein 5.9 L Albumin 3.3 L - Diagnostic Findings Chest x-ray: image reviewed Assessment and Plan Assessment: Acute hypoxemic respiratory failure, chest x-ray showing mild cardiomegaly, mild PVC, left basilar opacity obscuring the left heart border and hemidiaphragm. This could represent atelectasis or healthcare associated pneumonia. Undelying acute CHF exacerbation was considered; however, Nt-proBNP only mildly elevated at 670. Fall sustaining, acute compression fracture of left femoral neck and femoral head Hyponatremia Chronic obstructive pulmonary disease History of hyperlipidemia History of hypertension History of CVA/TIA, with left-sided hemiparesis and left upper arm contracture Obesity, with a BMI of 30.7 kg/m Chronic medical debility History of dementia ECF resident Plan: Medications, labs, imaging reviewed Patient continues on supplemental oxygen, currently on 3 L/min nasal cannula Empirically covered on a combination of azithromycin and Rocephin Procalcitonin level pending. Negative for influenza, RSV, COVID. Encourage incentive spirometer Follow-up with chest x-ray in the morning Echocardiogram is pending. Fall precautions Is being evaluated by orthopedic surgeon We will continue to follow I have personally seen and examined the patient, performed the documentation and the assessment and plan as written. Number of minutes spent on the visit:20 Time with Patient: Greater than 30
[2023-12-17 04:46] LABS: African American GFR (CKD) >90 (>60 ml/min/1.73 sqM); Anion Gap 6 mmol/L; Blood Urea Nitrogen 24 mg/dL (9-20); Carbon Dioxide 29 mmol/L (22-30); Chloride 101 mmol/L (98-107); Glucose 98 mg/dL (74-99); Non-African American GFR(CKD) 85 (>60 ml/min/1.73 sqM); Potassium 4.3 mmol/L (3.5-5.1); Sodium 136 mmol/L (137-145)
--- NOTE | 2023-12-17 08:37 | XR ---
EXAMINATION TYPE: XR chest 1V portable DATE OF EXAM: 12/17/2023 6:30 AM CLINICAL INDICATION:Male, 83 years old with history of follow up left basilar opacity; [facility] COMPARISON: Chest radiographs from 12/15/2023. TECHNIQUE: XR chest 1V portable Frontal view of the chest. FINDINGS: Lungs/Pleura: Bibasilar streaky atelectasis suggested not significantly changed from prior. There is no evidence of pleural effusion, focal consolidation, or pneumothorax. Pulmonary vascularity: Unremarkable. Heart/mediastinum: Cardiomediastinal silhouette is unremarkable. Musculoskeletal: No acute osseous pathology. IMPRESSION: Stable basilar opacities.
[2023-12-17] MEDS ORDERED: HYDROmorphone 0.5 MG/0.5 ML SYRINGE IVP PRN (09:59)
[2023-12-17] MEDS: ASPIRIN 81 MG PO SCH (10:28)
[2023-12-17] MEDS: MULTIVITAMINS, THERA LIQUID 237 ML BOTTLE PO SCH (10:31)
[2023-12-17] MEDS: CHOLECALCIFEROL 25 MCG (1000 IU) TABLET PO SCH (10:32)
--- NOTE | 2023-12-17 10:37 | P.PN ---
Subjective Progress Note Date: 12/17/23 This is an 83-year-old male who is admitted for a left hip fracture. Patient is seen and evaluated at bedside today. Patient is somewhat confused this morning, but does admit to pain in the left hip today by pointing. No family is present in the room today. I did speak with the patient's power of managing attorney yesterday to discuss surgical versus conservative management. The family states that they would like to proceed with surgical treatment now as the patient does have to be transferred occasionally for hygiene and other daily activities. Family states that the patient does occasionally stand with assistance from staff at his skilled nursing. Patient is being followed by internal medicine, cardiology and pulmonology for surgical clearance. Objective - Vital Signs Vital signs: Vital Signs Temp 97.6 F 12/17/23 10:07 Pulse 61 12/17/23 10:07 Resp 18 12/17/23 10:07 BP 127/75 12/17/23 10:07 Pulse Ox 98 12/17/23 10:07 FiO2 Intake & Output 12/16/23 12/17/23 12/17/23 18:59 06:59 18:59 Other: Voiding Method External Catheter # Voids 2 5 - Exam On exam patient is resting comfortably in bed in no acute distress. Patient is alert but slightly confused this morning. Patient is able to flex and extend left lower extremity, but points to discomfort in the left hip area. Patient does have good motion of bilateral feet and ankles. Calves are soft and nontender to palpation. Sensation intact bilateral lower extremities. Neurovascular status and circulatory status are intact. - Labs CBC & Chem 7: 12/16/23 07:03 12/17/23 04:02 Labs: Abnormal Lab Results - Last 24 Hours (Table) 12/17/23 Range/Units 04:02 Sodium 136 L (137-145) mmol/L BUN 24 H (9-20) mg/dL Assessment and Plan (1) COPD exacerbation Current Visit: Yes Status: Acute Code(s): J44.1 - CHRONIC OBSTRUCTIVE PULMONARY DISEASE W (ACUTE) EXACERBATION SNOMED Code(s): 102450273 (2) Closed left hip fracture Current Visit: Yes Status: Acute Code(s): S72.002A - FRACTURE OF UNSP PART OF NECK OF LEFT FEMUR, INIT SNOMED Code(s): 050107140 (3) Fall Current Visit: Yes Status: Acute Code(s): W19.XXXA - UNSPECIFIED FALL, INITIAL ENCOUNTER SNOMED Code(s): 3402956 Plan: 1. N.p.o. after midnight. 2. Continue bedrest and pain control. 3. Appreciate input from internal medicine, pulmonology and cardiology. 4. I did speak with the patient's power of managing attorney and after consideration of surgical versus conservative management, they would like to proceed with surgical management at this time. The patient is reported to be mostly bedbound, but does stand with assistance from staff at his skilled nursing and does transfer out of bed for hygiene and other activities of daily living. Recommend left hip hemiarthroplasty with direct anterior approach planned for 12/18/[address] Estrada pending medical clearance and consent.
[2023-12-17 13:49] VITALS: BMI 30.7
--- NOTE | 2023-12-17 17:27 | CA ---
Transthoracic Echo Report Name: Hieu Fong Age: 83 Gender: M : 1940 Exam Date: 12/17/2023 08:11 Exam Location: [place] [facility] Ht (in): 68 Wt (lb): 202 Ordering Physician: Indra Christiansen MD Attending/Referring Phys: Deli Slicer Kathleen Junior RDCS Procedure CPT: Indications: chf Cardiac Hx: Technical Quality: Very technically difficult study Contrast 1: Definity Total Dose (mL): 2 Contrast 2: Total Dose (mL): MEASUREMENTS (Male / Female) Normal Values DOPPLER AV Peak Velocity 170.1 cm/s AV Peak Gradient 11.6 mmHg AV Mean Velocity 103.0 cm/s AV Mean Gradient 5.0 mmHg AV Velocity Time Integral 32.5 cm LVOT Peak Velocity 98.0 cm/s LVOT Peak Gradient 3.8 mmHg LVOT Velocity Time Integral 21.0 cm MV Area PHT 3.1 cm??? Mitral E Point Velocity 69.2 cm/s Mitral A Point Velocity 88.1 cm/s Mitral E to A Ratio 0.8 MV Deceleration Time 247.4 ms FINDINGS Left Ventricle Left ventricular ejection fraction is estimated at 55-60 %. No obvious regional wall motion abnormalities. Right Ventricle Right ventricle not well visualized. Right Atrium Right atrium not well visualized. Left Atrium Left atrium not well visualized. Mitral Valve Mitral valve not well visualized. No mitral stenosis, regurgitation or prolapse. Aortic Valve Aortic valve not well visualized. Tricuspid Valve Tricuspid valve not well visualized. Pulmonic Valve Pulmonic valve not well visualized. Pericardium No pericardial effusion. Aorta Aortic root and proximal ascending aorta not well visualized. CONCLUSIONS Diagnosis: Shortness of breath CHF Technically difficult study with suboptimal acoustic windows Definity contrast used Preserved LV size and function ejection fraction greater than 55% Previewed by: Dr. Romeo Boyce MD (Electronically Signed) Final Date: 17 December 2023 17:26
--- NOTE | 2023-12-17 19:07 | P.CRDCN ---
History of Present Illness History of present illness: This is Dr. Boyce dictating a consult on this patient The patient was interviewed and examined IMPRESSION / ASSESSMENT: History of fall and left hip fracture awaiting surgery Preserved LV systolic function Normal twelve-lead EKG PLAN: Proceed with hip surgery Continue statins HPI Patient admitted from [facility]. He fell 2 days back has a left hip fracture He has dementia, but was noted to be hypoxic and wheezing on arrival Also being treated for pneumonitis Currently DNR 2D echo shows preserved LV size systolic function twelve-lead EKG ROS: No fever chills or rigors, no cough, phlegm or expectoration, no nausea, vomiting or diarrhea, no hematuria, dysuria, no musculoskeletal complaints, no strokes or seizures, no skin lesions. EXAMINATION: REVIEW OF LABS, ECG & MEDICAL DATA Past Medical History Past Medical History: COPD, CVA/TIA, Dementia, Hyperlipidemia, Hypertension, Osteoarthritis (OA) Additional Past Medical History / Comment(s): left hand contracture, hemiparesis, mild cognitive impairment, BPH History of Any Multi-Drug Resistant Organisms: None Reported Additional Past Surgical History / Comment(s): peg tube Past Psychological History: Anxiety Smoking Status: Never smoker Past Alcohol Use History: None Reported Past Drug Use History: None Reported Medications and Allergies Home Medications Medication Instructions Recorded Confirmed Type Albuterol Nebulized [Ventolin 2.5 mg INHALATION RT-Q4H PRN 05/29/21 12/16/23 History Nebulized] Aspirin 81 mg PO DAILY 05/29/21 12/16/23 History Atorvastatin Calcium [Lipitor] 80 mg PO HS 05/29/21 12/16/23 History Cholecalciferol [Vitamin D3 (25 50 mcg PO DAILY 05/29/21 12/16/23 History Mcg = 1000 Iu)] Menthol [Biofreeze] 1 applic TOPICAL TID 05/29/21 12/16/23 History Sennosides [Senna] 8.6 mg PO BID 05/29/21 12/16/23 History Sennosides-Docusate Sodium 2 tab PO HS 05/29/21 12/16/23 History [Senokot-S] Tamsulosin [Flomax] 0.4 mg PO HS 05/29/21 12/16/23 History Vision Vitamins Tablet 1 tab PO HS 10/15/21 12/16/23 History Acetaminophen [Tylenol Arthritis] 650 mg PO Q12HR@0800,2000 12/16/23 12/16/23 History Apixaban [Eliquis] 5 mg PO BID@0800,1600 12/16/23 12/16/23 History Multivitamins, Thera [Multivitamin 1 tab PO DAILY 12/16/23 12/16/23 History (formulary)] Naloxone HCl [Narcan] 4 mg NASAL DIRECTED PRN 12/16/23 12/16/23 History Tramadol 100mg 1 tab PO Q6H 12/16/23 12/16/23 History Allergies Allergy/AdvReac Type Severity Reaction Status Date / Time No Known Allergies Allergy Verified 12/16/23 10:54 Physical Exam Vitals: Vital Signs Temp Pulse Pulse Resp BP Pulse Ox 12/17/23 16:51 68 12/17/23 16:41 68 12/17/23 14:02 97.3 F L 66 14 131/74 99 12/17/23 10:07 97.6 F 61 18 127/75 98 12/17/23 07:35 97.6 F 61 18 127/75 98 12/17/23 01:12 98.6 F 72 18 130/67 94 L 12/16/23 20:40 16 12/16/23 19:50 97.7 F 66 18 124/72 95 Intake and Output 12/17/23 12/17/23 12/17/23 06:59 14:59 22:59 Other: # Voids 5 1 Weight 91.626 kg Results 12/16/23 07:03 12/17/23 04:02 Comprehensive Metabolic Panel 12/17/23 Range/Units 04:02 Sodium 136 L (137-145) mmol/L Potassium 4.3 (3.5-5.1) mmol/L Chloride 101 (98-107) mmol/L Carbon Dioxide 29 (22-30) mmol/L BUN 24 H (9-20) mg/dL Creatinine 0.79 (0.66-1.25) mg/dL Glucose 98 (74-99) mg/dL Calcium 9.0 (8.4-10.2) mg/dL Current Medications Generic Name Dose Route Start Last Admin Trade Name Freq PRN Reason Stop Dose Admin Acetaminophen 650 mg 12/16/23 11:47 Acetaminophen Tab 325 Mg Tab PO Q6HR PRN Mild Pain or Fever > 100.5 Albuterol Sulfate 2.5 mg 12/16/23 09:55 Albuterol Nebulized 2.5 Mg/3 Ml INHALATION RT-Q4H PRN Shortness Of Breath Albuterol/Ipratropium 3 ml 12/16/23 16:33 12/17/23 16:40 Ipratropium-Albuterol 3 Ml Neb INHALATION 3 ml RT-QID [facility]O Administration Alprazolam 0.25 mg 12/16/23 11:47 Alprazolam 0.25 Mg Tab PO Q6HR PRN Anxiety Aspirin 81 mg 12/17/23 09:00 12/17/23 10:28 Aspirin 81 Mg PO Not Given DAILY V[facility]O Atorvastatin Calcium 80 mg 12/16/23 21:00 12/16/23 20:40 Atorvastatin 80 Mg Tab PO 80 mg HS VETO Administration Calcium Carbonate/Glycine 1,000 mg 12/16/23 11:47 Calcium Carbonate 500 Mg Chewable PO Q4HR PRN Dyspepsia Cholecalciferol 50 mcg 12/17/23 09:00 12/17/23 10:32 Cholecalciferol 25 Mcg (1000 Iu) Tablet PO 50 mcg DAILY [facility] Administration Enoxaparin Sodium 40 mg 12/16/23 10:00 12/17/23 10:28 Enoxaparin 40 Mg/0.4 Ml Syringe SQ Not Given DAILY [facility] Furosemide 20 mg 12/16/23 17:09 12/17/23 09:22 Furosemide 10 Mg/Ml 2 Ml Vial IV 20 mg Q12HR [facility] Administration Hydromorphone HCl 0.5 mg 12/17/23 09:59 Hydromorphone 0.5 Mg/0.5 Ml Syringe IVP 12/18/23 09:58 Q5M PRN Phase 1 or 2 - Pain Control Lactated Ringer's 1,000 mls @ 20 mls/hr 12/17/23 09:59 Lactated Ringers IV .Q24H [facility] Iron/Minerals/Multivitamins 5 ml 12/17/23 09:00 12/17/23 10:31 Multivitamins, Thera Liquid 237 Ml Bottle PO 5 ml DAILY [facility] Administration Lactic Acid 1 applic 12/16/23 14:00 12/17/23 16:12 Ammonium Lactate 12% Cream 140 Gm Tube TOPICAL 1 applic DAILY@1400 [facility] Administration Protocol Lactulose 20 gm 12/16/23 11:47 Lactulose 20 Gm/30 Ml Cup PO DAILY PRN Constipation Levetiracetam 500 mg 12/16/23 10:00 12/17/23 10:31 Levetiracetam Oral Soln 500 Mg/5 Ml Cup PO 500 mg DAILY [facility] Administration Morphine Sulfate 4 mg 12/15/23 22:24 12/17/23 01:30 Morphine Sulfate 4 Mg/Ml Syringe IV 4 mg Q4HR PRN Administration Severe Pain (Scale 7 to 10) Naloxone HCl 0.2 mg 12/15/23 22:24 Naloxone 0.4 Mg/Ml 1 Ml Vial IV Q2M PRN Opioid Reversal Prochlorperazine Maleate 5 mg 12/16/23 11:47 Prochlorperazine 5 Mg Tab PO Q8HR PRN Nausea And Vomiting Senna 8.6 mg 12/16/23 21:00 12/17/23 10:32 Sennosides 8.6 Mg Tab PO 8.6 mg BID [facility] Administration Senna/Docusate Sodium 2 each 12/16/23 14:00 12/17/23 16:11 Sennosides-Docusate Sodium 1 Each Tab PO 2 each DAILY@1400 [facility] Administration Tamsulosin HCl 0.4 mg 12/16/23 21:00 12/16/23 20:40 Tamsulosin 0.4 Mg Cap.Er.24h PO 0.4 mg HS VETO Administration Intake and Output 12/17/23 12/17/23 12/17/23 06:59 14:59 22:59 Other: # Voids 5 1 Weight 91.626 kg Patient Weight 12/18/23 06:59 Weight 91.626 kg 12/16/23 07:03 12/17/23 04:02
--- NOTE | 2023-12-17 20:07 | P.PN ---
Progress Note - Text Progress Note Date: 12/17/23 Chief Complaint: Left hip pain This is a pleasant 83-year-old patient[facility] [place] [facility] [place]. Follows Dr. Ferreira. 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 Mild cognitive impairment. Patient had a fall 2 days ago. Complaining of pain in the left hip. Appetite is fair. Bowels are fine. Patient is able to answer simple questions. Found to have left hip fracture. Eliquis held. Patient nonambulatory. Denies any chest pain or shortness of breath. Patient is slow to answer questions but able to answer them. Spoke to Dr. Sean Quinn orthopedic. I would prefer the patient surgery to be postponed till Thursday to tune him up a bit more. He will receive at least 48 hours of antibiotics. Also get input from pulmonary and cardiology. He agrees to the same. Surgery postponed to ThursdayDecember 16: I spoke to patient's Sister Ann Murcia who is also the POA and her daughter. Updated them questions answered. Today patient resting in bed. Some pain in the left hip size. Respiratory symptoms are actually better. Had about 50% of his breakfast. Incentive spirometry ordered. 2D echo shows preserved LV function. No wall motion abnormality reported. Patient is medically stable given his risk factors to proceed for surgery tomorrow. Has overall moderate risk for perioperative complications. Active Medications Acetaminophen (Acetaminophen Tab 325 Mg Tab) 650 mg PO Q6HR PRN PRN Reason: Mild Pain or Fever > 100.5 Albuterol Sulfate (Albuterol Nebulized 2.5 Mg/3 Ml) 2.5 mg INHALATION RT-Q4H PRN PRN Reason: Shortness Of Breath Albuterol/Ipratropium (Ipratropium-Albuterol 3 Ml Neb) 3 ml INHALATION RT-QID [facility] Last Admin: 12/17/23 16:40 Dose: 3 ml Alprazolam (Alprazolam 0.25 Mg Tab) 0.25 mg PO Q6HR PRN PRN Reason: Anxiety Aspirin (Aspirin 81 Mg) 81 mg PO DAILY [facility] Last Admin: 12/17/23 10:28 Dose: Not Given Atorvastatin Calcium (Atorvastatin 80 Mg Tab) 80 mg PO HS [facility] Last Admin: 12/16/23 20:40 Dose: 80 mg Calcium Carbonate/Glycine (Calcium Carbonate 500 Mg Chewable) 1,000 mg PO Q4HR PRN PRN Reason: Dyspepsia Cholecalciferol (Cholecalciferol 25 Mcg (1000 Iu) Tablet) 50 mcg PO DAILY [facility] Last Admin: 12/17/23 10:32 Dose: 50 mcg Enoxaparin Sodium (Enoxaparin 40 Mg/0.4 Ml Syringe) 40 mg SQ DAILY [facility] Last Admin: 12/17/23 10:28 Dose: Not Given Furosemide (Furosemide 10 Mg/Ml 2 Ml Vial) 20 mg IV Q12HR [facility] Last Admin: 12/17/23 09:22 Dose: 20 mg Hydromorphone HCl (Hydromorphone 0.5 Mg/0.5 Ml Syringe) 0.5 mg IVP Q5M PRN PRN Reason: Phase 1 or 2 - Pain Control Stop: 12/18/23 09:58 Lactated Ringer's (Lactated Ringers) 1,000 mls @ 20 mls/hr IV .Q24H [facility] Iron/Minerals/Multivitamins (Multivitamins, Thera Liquid 237 Ml Bottle) 5 ml PO DAILY [facility] Last Admin: 12/17/23 10:31 Dose: 5 ml Lactic Acid (Ammonium Lactate 12% Cream 140 Gm Tube) 1 applic TOPICAL DAILY@1400 [facility]; Protocol Last Admin: 12/17/23 16:12 Dose: 1 applic Lactulose (Lactulose 20 Gm/30 Ml Cup) 20 gm PO DAILY PRN PRN Reason: Constipation Levetiracetam (Levetiracetam Oral Soln 500 Mg/5 Ml Cup) 500 mg PO DAILY [facility] Last Admin: 12/17/23 10:31 Dose: 500 mg Morphine Sulfate (Morphine Sulfate 4 Mg/Ml Syringe) 4 mg IV Q4HR PRN PRN Reason: Severe Pain (Scale 7 to 10) Last Admin: 12/17/23 01:30 Dose: 4 mg Naloxone HCl (Naloxone 0.4 Mg/Ml 1 Ml Vial) 0.2 mg IV Q2M PRN PRN Reason: Opioid Reversal Prochlorperazine Maleate (Prochlorperazine 5 Mg Tab) 5 mg PO Q8HR PRN PRN Reason: Nausea And Vomiting Senna (Sennosides 8.6 Mg Tab) 8.6 mg PO BID [facility] Last Admin: 12/17/23 10:32 Dose: 8.6 mg Senna/Docusate Sodium (Sennosides-Docusate Sodium 1 Each Tab) 2 each PO DAILY@1400 [facility] Last Admin: 12/17/23 16:11 Dose: 2 each Tamsulosin HCl (Tamsulosin 0.4 Mg Cap.Er.24h) 0.4 mg PO HS [facility] Last Admin: 12/16/23 20:40 Dose: 0.4 mg Social history: No smoking. No alcohol. Resident of [facility]. Physical examination: VITAL SIGNS: 97.3, 66, 14, 131/74, 99% on 3 L GENERAL: Reclining in bed, breathing better. EYES: Pupils equal. Conjunctiva maribel l. HEENT: External appearance of nose and ears normal, oral cavity grossly normal. NECK: JVD not raised; masses not palpable. HEART: First and second heart sounds are normal; no edema. LUNGS:[ Respiratory rate increased, decreased breath sounds . ABDOMEN: Soft, nontender, liver spleen not palpable, no masses palpable. PSYCH: Awake, able to answer simple questions l. MUSCULOSKELETAL:No Clubbing/cyanosis;muscles-grossly intact. OA. Limited range of motion left hip NEUROLOGICAL: [Cranial nerves grossly intact; no facial asymmetry, left forearm contracture. INVESTIGATIONS, reviewed in the clinical context: 2D echocardiogram: EF 55 to 60%. December 16: Sodium 136 potassium 4.3 BUN 24 creatinine 0.79 procalcitonin 0.08 December 16, 2023: White count 4 hemoglobin 10.8 platelets 197 sodium 130 potassium 5 BUN 23 creatinine 0.83 Influenza type A, type B, RSV, COVID-19: Not detected EKG tracing personally reviewed by me-normal sinus rhythm. Chest x-ray film personally reviewed by me-left basilar infiltrate possible edema CT hip left without contrast: Acute compression fracture femoral neck and femoral head in near anatomic alignment Assessment plan: -Acute compression fracture left femoral neck, secondary to fall 2 days prior to admission Follow-up with Dr. Quinn. For surgical intervention tomorrow December 17 -Left basal pneumonia suspect gram-negative organism: Improving IV ceftriaxone. Zithromax. -Probable acute congestive heart failure exacerbation from diastolic dysfunction EF 55 to 60% Lasix to p.o. from tomorrow morning proBNP 670 Cardiology following -Chronic medical debility. 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 Unclear why patient takes the same. Currently has been held in view of upcoming surgery. -DNR Medically stable to proceed for surgery . Past Medical History Past Medical History: COPD, CVA/TIA, Dementia, Hyperlipidemia, Hypertension, Osteoarthritis (OA) Additional Past Medical History / Comment(s): left hand contracture, hemiparesis, mild cognitive impairment, BPH History of Any Multi-Drug Resistant Organisms: None Reported Additional Past Surgical History / Comment(s): peg tube Past Psychological History: Anxiety Smoking Status: Never smoker Past Alcohol Use History: None Reported Past Drug Use History: None Reported
[2023-12-17] MEDS: LACTATED RINGERS 1,000 ML IV SCH (20:52)
[2023-12-17] MEDS: ONDANSETRON 4 MG/2 ML VIAL IVP ONE (20:52)
[2023-12-17] MEDS: DEXAMETHASONE SOD PHOSPHATE 4 MG/ML 1 ML VIAL IV ONE (20:52)
[2023-12-18] MEDS: ACETAMINOPHEN TAB 325 MG TAB PO PRN (04:33)
[2023-12-18 04:45] LABS: Basophils % (A) 1 %; Eosinophils # (A) 0.6 k/uL (0-0.7); Eosinophils % (A) 8 %; HCT 34.6 % (39.0-53.0); HGB 11.3 gm/dL (13.0-17.5); Hypochromasia Slight; Lymphocytes % (A) 26 %; MCH 29.1 pg (25.0-35.0); MCHC 32.5 g/dL (31.0-37.0); MCV 89.6 fL (80.0-100.0); Mean Platelet Volume 7.7; Monocytes # (A) 0.8 k/uL (0-1.0); Monocytes % (A) 10 %; Neutrophils # (A) 4.2 k/uL (1.3-7.7); Neutrophils % (A) 54 %; Platelet Count 242 k/uL (150-450); RBC 3.86 m/uL (4.30-5.90); WBC 7.7 k/uL (3.8-10.6)
[2023-12-18 04:55] LABS: African American GFR (CKD) >90 (>60 ml/min/1.73 sqM); Anion Gap 8 mmol/L; Blood Urea Nitrogen 20 mg/dL (9-20); Calcium 8.8 mg/dL (8.4-10.2); Carbon Dioxide 27 mmol/L (22-30); Chloride 102 mmol/L (98-107); Glucose 82 mg/dL (74-99); Non-African American GFR(CKD) 85 (>60 ml/min/1.73 sqM); Potassium 3.7 mmol/L (3.5-5.1); Sodium 137 mmol/L (137-145)
[2023-12-18] MEDS: FUROSEMIDE 40 MG TAB PO SCH (10:02)
[2023-12-18] MEDS: IV FLUID CONTINUATION 1,000 ML IV ONE (12:21)
--- NOTE | 2023-12-18 13:18 | P.PN ---
Subjective Progress Note Date: 12/18/23 Patient is a 83-year-old male who resides at a local [facility]. Past medical history significant for COPD, CVA/TIA with left-sided hemiparesis, dementia, hyperlipidemia, hypertension, among other things. On Thursday, the patient reportedly fell while being assisted out of bed. He hit his head on a register. Also, fell on his left side. He did have some preliminary x-rays that were concerning for left hip fracture. Patient was sent to the emergency department for evaluation on 12/15/23. On arrival, he was found to be in some respiratory distress and hypoxic, he was placed on supplemental oxygen. Initial chest x-ray showing cardiomegaly, pulmonary vascular congestion, and left basilar opacity. This could represent atelectasis or infectious process, and/or possible pleural effusion. For this reason, we were asked to evaluate the patient yesterday evening. Patient is currently in room 484. He is on 3 L/min nasal cannula, no acute respiratory distress. He is technically a poor historian. He does endorse a occasional cough with minimal mucus production. Denies fevers, chills. Denies chest pain, palpitaitons, hemoptysis. He is mostly bedridden at the [facility]. He has a left arm contracture. Dysarthric. He does reportedly have trouble swallowing thin liquids. Eliquis is listed as a home medication. He did receive follow-up imaging in regards to his fall. CT of the brain did not show any acute intracranial process. There was a prior right frontal craniotomy flap which was stable. Underlying and for encephalomalacia and volume loss centrally. Hip x-ray concerning for impacted left femoral neck fracture. Follow-up CT of the left hip confirms acute compression fracture of the femoral neck and femoral head. CBC: WBC count 4, hemoglobin 10.8, hematocrit 34.3, platelets 197. CMP: Sodium 130, potassium 5, chloride 100, serum bicarb 26, BUN 23, creatinine 0.83, glucose 126. LFTs unremarkable. Troponin 0.015. NT proBNP 670. EKG shows normal sinus rhythm with incomplete RBB pattern. No obvious acute ischemic changes. Negative for influenza, RSV, COVID. Afebrile. Hemodynamic stable. The patient is seen today December 18, 2023 in follow-up on the regular medical floor. He is currently resting fairly comfortably in bed. Awake and alert in no acute distress. He is maintaining O2 saturations in the 90s on 2 L/min per nasal cannula. Hold. The plan is for repair of his left hip fracture today. 242. Sodium 137. Potassium 3.7. Bicarb 27. BUN 20. Creatinine 0.78. Procalcitonin was negative at 0.08. Chest x-ray revealed some stable basilar streaky atelectasis. He remains on bronchodilators. Remains on oral diuretics. Objective - Vital Signs Vital signs: Vital Signs Temp 97.6 F 12/18/23 12:23 Pulse 98 12/18/23 12:23 Resp 16 12/18/23 12:23 BP 124/57 12/18/23 12:23 Pulse Ox 98 12/18/23 12:23 FiO2 Intake & Output 12/17/23 12/18/23 12/18/23 18:59 06:59 18:59 Output Total 0 Balance 0 Weight 91.626 kg Output: Urine 0 Other: # Voids 1 - Exam GENERAL EXAM: Alert, pleasant 83-year-old male, on 2 L nasal cannula, fairly comfortable in no apparent distress. HEAD: Normocephalic and atraumatic EYES: Normal reaction of pupils, equal size. NOSE: Clear with pink turbinates. THROAT: No erythema or exudates. NECK: No masses, no JVD. CHEST: No chest wall deformity. LUNGS: Equal air entry with with limited chest excursion, diminished lung sounds bilaterally especially at the bases. CVS: S1 and S2 normal with no audible murmur, regular rhythm. No extra heart sounds ABDOMEN: No hepatosplenomegaly, active bowel sounds, no guarding or rigidity. SPINE: No scoliosis or deformity SKIN: No rashes CENTRAL NERVOUS SYSTEM: Alert and oriented x 3, dysarthric, facial symmetry, left sided hemiparesis and and left arm contracture, right upper and lower extremity strength graded 4/5. EXTREMITIES: There is no peripheral edema, clubbing, or cyanosis. Peripheral pulses are intact. - Labs CBC & Chem 7: 12/18/23 03:31 12/18/23 03:31 Labs: Abnormal Lab Results - Last 24 Hours (Table) 12/18/23 Range/Units 03:31 RBC 3.86 L (4.30-5.90) m/uL Hgb 11.3 L (13.0-17.5) gm/dL Hct 34.6 L (39.0-53.0) % Assessment and Plan Assessment: Acute hypoxemic respiratory failure, chest x-ray showing mild cardiomegaly, mild PVC, left basilar opacity obscuring the left heart border and hemidiaphragm. proBNP only mildly elevated at 670. Follow-up chest x-ray only stable basilar atelectasis. Procalcitonin negative. Antibiotics discontinued Fall sustaining acute compression fracture of left femoral neck and femoral head, plan is for surgical repair today 12/18/2023 Hyponatremia Chronic obstructive pulmonary disease History of hyperlipidemia History of hypertension History of CVA/TIA, with left-sided hemiparesis and left upper arm contracture Obesity, with a BMI of 30.7 kg/m Chronic medical debility History of dementia F resident Plan: The patient was seen and evaluated Chest x-ray, labs and medications reviewed Currently stable on 2 L nasal cannula Plan is for repair of the left hip fracture today Add incentive spirometer We will continue to follow I have personally seen and examined the patient, performed the documentation and the assessment and plan as written. Number of minutes spent on the visit: 10.
[2023-12-18] MEDS ORDERED: NEOSTIGMINE 1 MG/ML 10 ML VIAL ONE (13:31)
[2023-12-18] MEDS ORDERED: LIDOCAINE 1% INJ 10MG/ML (20 ML MDV) ONE (13:31)
[2023-12-18] MEDS ORDERED: ETOMIDATE 2 MG/ML 10 ML VIAL ONE (13:31)
[2023-12-18] MEDS ORDERED: PHENYLEPHRINE-0.9% NACL SYG 1,000 MCG/10 ML SYRINGE ONE (13:31)
[2023-12-18] MEDS ORDERED: ROCURONIUM 10 MG/ML (5 ML VIAL) IV ONE (13:31)
[2023-12-18] MEDS ORDERED: GLYCOPYRROLATE 0.2 MG/ML 2 ML VIAL ONE (13:31)
[2023-12-18] MEDS ORDERED: SUCCINYLCHOLINE CHLORIDE 200 MG/10 ML VIAL IV ONE (13:31)
[2023-12-18] MEDS ORDERED: fentaNYL (PF) 50 MCG/ML 2 ML AMP ONE (13:31)
[2023-12-18] MEDS ORDERED: KETOROLAC 15 MG/ML 1 ML VIAL ONE (13:31)
[2023-12-18] MEDS: SODIUM CHLORIDE 0.9% 50 ML with ceFAZolin 2,000 MG IV ONE (13:36)
--- NOTE | 2023-12-18 14:46 | P.OP ---
Date of Procedure: 12/18/23 Preoperative Diagnosis: Subcapital fracture left hip Postoperative Diagnosis: Subcapital fracture left hip Procedure(s) Performed: Left hip hemiarthroplasty with a direct anterior approach Implants: Arzola and nephew Polarstem size 7 standard with a collar Arzola [employer] Nephew tandem unipolar, 51 mm Arzola [employer] Nephew tandem unipolar 12/14 taper sleeve, +4 mm All components were press-fit. Anesthesia: spinal Surgeon: Sean Quinn Vocational Auto Body Instructor #1: Chela Schilling Estimated Blood Loss (ml): 300 Pathology: none sent Condition: stable Disposition: PACU Indications for Procedure: This is an 83-year-old gentleman who is a resident of an extended care facility. He has been experiencing hip pain for the past few days and x-rays demonstrated a subcapital fracture of his left hip. After discussing the surgical and nonsurgical treatment options with his family and legal guardian at length, they have elected to proceed with a hemiarthroplasty of his left hip. Informed consent was obtained. Operative Findings: The operative findings are consistent with a subcapital fracture of the left hip Description of Procedure: The patient was seen and evaluated in the preoperative area and the consent was reviewed. The operative site was marked with a skin marker. The patient verified the procedure and operative site. A MARTI block was placed by anesthesia in the preoperative area. The patient was then brought to the operating room and given preoperative antibiotics intravenously. 1 g of Tranexamic acid was also given intravenously. A spinal anesthetic was administered by the anesthesia department. The patient was then placed on the [place] table with the bony prominences well-padded. The hip area was then prepped with a ChloraPrep solution and draped in the usual sterile fashion. A universal timeout was then performed, which confirmed the patient's name, surgical site, ALLERGIES, and procedure being performed on the consent. Next the incision site was located at 1 cm distal and 4 cm lateral to the anterior superior iliac spine. The skin and subcutaneous tissues were sharply incised. Incision was carefully dissected down to the fascia overlying the tensor fascia daly muscle. This fascia was then incised in line with the muscle fibers. Care was taken to stay laterally in order to avoid injuring the lateral femoral cutaneous nerve. Next, using blunt finger dissection, the tensor fascia daly muscle was dissected off its investing fascia. The muscle was then carefully retracted laterally with a cobra retractor over the lateral neck of the femur. Next, the circumflex vessels were identified and cauterized using the Aquamantis device. The anterior hip capsule was then exposed. The capsule was then opened and an inverted T fashion. The retractors were then placed intracapsularly. The retractors were maintained intracapsular throughout the procedure. The proximal femur was then visualized. A small amount of traction was placed on the leg. The femoral neck was then osteotomized at the appropriate level above the lesser trochanter. A small wedge of bone was then removed from the remaining femoral head. Next, using a corkscrew the femoral head was removed from the acetabulum. The femoral head was then measured. Attention was then turned to the acetabulum. The acetabulum was exposed and inspected. There was no evidence of any sig nificant arthrosis. Attention was then directed to the femur. With the aid of the [place] table, the femur was externally rotated to approximately 130, extended, and adducted under the opposite leg. A side hook was then placed under the proximal femur, and the side hook elevator was used to elevate the proximal femur while releasing the capsule. Retractors were then placed. A capsular release was performed, as well as a release of the conjoined tendon, which afforded excellent visualization of the proximal femur. Next, a box osteotome was used to lateralize the proximal femur. A mail handler was then used to locate the femoral canal. Sequential broaching was then performed with appropriate size which afforded excellent fixation in the proximal femur. A trial was then placed with appropriate head and neck, and the hip was gently reduced with the aid of the [place] table. Fluoroscopy was then used to check position of the components, as well as to evaluate the leg lengths and offset. The leg lengths and offset were measured as closely as possible to ensure stability of the hip. The hip was then gently dislocated and the trials were then removed. Final implants were then impacted and the hip was again reduced. Final fluoroscopic x-rays confirmed that the components were in anatomic position. The leg lengths and offset were measured and were found to coincide with the trial measurements. The hip was also taken through range of motion, and found to be stable. The hip was then copiously irrigated with antibiotic solution with pulsatile lavage. The hip was then irrigated with Irrisept solution. A second dose of 1 g of Tranexamic acid was also given intravenously. The fascia was then closed with 2-0 strata fix suture. The subcutaneous tissue was closed with 3-0 Vicryl. The subcuticular tissue was closed with 3-0 strata fix suture. The skin was then closed with Exofin skin glue. After the glue and dried, and Optifoam silver impregnated dressing was applied. The patient was then transferred to the recovery room in stable condition. The dental assistant medical assistant Chela Schilling NP was required due to the complexity of surgery, and the need for skilled surgical garment assembly supervisor for positioning, draping, exposure, retraction, and closure of the wound.
[2023-12-18] MEDS ORDERED: ONDANSETRON 4 MG/2 ML VIAL IVP PRN (15:25)
[2023-12-18] MEDS ORDERED: HYDROcodone/APAP 10-325MG 1 EACH TAB PO PRN (15:25)
[2023-12-18] MEDS ORDERED: MAGNESIUM HYDROXIDE 2,400 MG/30 ML CUP PO PRN (15:25)
--- NOTE | 2023-12-18 15:35 | FL ---
EXAMINATION TYPE: FL guidance operating room, XR Hip Limited LT DATE OF EXAM: 12/18/2023 Comparison: 12/15/2023 Clinical History: 83-year-old male LEFT HIP FX Findings: Intraoperative fluoroscopy during placement of left hip hemiarthroplasty. LT fernando hip with Heithoff. 2 images saved. 11 sec fluoro time. .6272 Gycm2 DAP
--- NOTE | 2023-12-18 16:12 | XR ---
EXAMINATION TYPE: XR Hip Limited AP LT DATE OF EXAM: 12/18/2023 Comparison: None Clinical History: 83-year-old male Status post hip surgery, assess surgical alignment Findings: Image shows placement of left hip hemiarthroplasty. Alignment grossly anatomic. Some soft tissue air related to recent operation. No periprosthetic fracture seen. Impression: Uncomplicated postoperative appearance left hip hemiarthroplasty.
[2023-12-18] MEDS: TRANEXAMIC 1,000 MG/100ML-NACL 1,000 MG in SALINE 1 100ML.BAG IVPB SCH (17:53)
--- NOTE | 2023-12-19 07:58 | P.PN ---
Subjective Progress Note Date: 12/19/23 Principal diagnosis: Status post left fernando arthroplasty This is a 83 year-old male post left hip hemiarthroplasty. This is post-op day 1. The patient was evaluated at the bedside today. The patient denies nausea, vomiting, abdominal pain, shortness of breath, and chest pain this morning. He states his pain is controlled at this time. The patient has not been up with physical therapy. Objective - Vital Signs Vital signs: Vital Signs Temp 99 F 12/19/23 02:03 Pulse 90 12/19/23 02:03 Resp 14 12/19/23 02:03 BP 131/69 12/19/23 02:03 Pulse Ox 97 12/19/23 02:03 FiO2 Intake & Output 12/18/23 12/19/23 12/19/23 18:59 06:59 18:59 Intake Total 900 Output Total 300 Balance 600 Intake: IV 850 Intake, IV Titration 50 Amount ceFAZolin 2 gm In Sodium 50 Chloride 0.9% 50 ml @ 100 mls/hr IVPB Q8HR [facility] Rx# :[id number] Output: Estimated Blood Loss 300 Other: Voiding Method Diaper # Voids 2 - Exam The patient does not appear in acute distress. Alert and orientated x3. Dressing is clean dry and intact. Incision appears fine with no erythema or active drainage. Calf is soft and nontender. Good foot and ankle motion without difficulty. Sensation and circulatory status is intact. - Labs CBC & Chem 7: 12/19/23 07:18 12/18/23 03:31 Assessment and Plan (1) S/P hip hemiarthroplasty Current Visit: Yes Status: Acute Code(s): Z96.649 - PRESENCE OF UNSPECIFIED ARTIFICIAL HIP JOINT SNOMED Code(s): 257428620 (2) Closed left hip fracture Current Visit: Yes Status: Acute Code(s): S72.002A - FRACTURE OF UNSP PART OF NECK OF LEFT FEMUR, INIT SNOMED Code(s): 727185473 (3) Fall Current Visit: Yes Status: Acute Code(s): W19.XXXA - UNSPECIFIED FALL, IN ITIAL ENCOUNTER SNOMED Code(s): 9218399 Plan: 1. Continue pain control, will add Flexeril for muscle spasms 2. Anticoagulation per internal medicine 3. Start physical therapy and ambulation today 4. Anticipate discharge back to [facility] on discharge.
[2023-12-19 08:19] LABS: Basophils % (A) 0 %; Eosinophils # (A) 0.2 k/uL (0-0.7); Eosinophils % (A) 2 %; HCT 32.6 % (39.0-53.0); HGB 10.6 gm/dL (13.0-17.5); Hypochromasia Moderate; Lymphocytes # (A) 1.7 k/uL (1.0-4.8); Lymphocytes % (A) 19 %; MCH 29.4 pg (25.0-35.0); MCHC 32.5 g/dL (31.0-37.0); MCV 90.4 fL (80.0-100.0); Mean Platelet Volume 7.4; Monocytes # (A) 0.9 k/uL (0-1.0); Monocytes % (A) 10 %; Neutrophils # (A) 5.9 k/uL (1.3-7.7); Neutrophils % (A) 67 %; Platelet Count 243 k/uL (150-450); RBC 3.61 m/uL (4.30-5.90); WBC 8.8 k/uL (3.8-10.6)
[2023-12-19] MEDS: CYCLOBENZAPRINE 10 MG TAB PO PRN (08:53)
--- NOTE | 2023-12-19 11:22 | P.PN ---
Subjective Progress Note Date: 12/19/23 Patient is a 83-year-old male who resides at a local [facility]. Past medical history significant for COPD, CVA/TIA with left-sided hemiparesis, dementia, hyperlipidemia, hypertension, among other things. On Thursday, the patient reportedly fell while being assisted out of bed. He hit his head on a register. Also, fell on his left side. He did have some preliminary x-rays that were concerning for left hip fracture. Patient was sent to the emergency department for evaluation on 12/15/23. On arrival, he was found to be in some respiratory distress and hypoxic, he was placed on supplemental oxygen. Initial chest x-ray showing cardiomegaly, pulmonary vascular congestion, and left basilar opacity. This could represent atelectasis or infectious process, and/or possible pleural effusion. For this reason, we were asked to evaluate the patient yesterday evening. Patient is currently in room 484. He is on 3 L/min nasal cannula, no acute respiratory distress. He is technically a poor historian. He does endorse a occasional cough with minimal mucus production. Denies fevers, chills. Denies chest pain, palpitaitons, hemoptysis. He is mostly bedridden at the [facility]. He has a left arm contracture. Dysarthric. He does reportedly have trouble swallowing thin liquids. Eliquis is listed as a home medication. He did receive follow-up imaging in regards to his fall. CT of the brain did not show any acute intracranial process. There was a prior right frontal craniotomy flap which was stable. Underlying and for encephalomalacia and volume loss centrally. Hip x-ray concerning for impacted left femoral neck fracture. Follow-up CT of the left hip confirms acute compression fracture of the femoral neck and femoral head. CBC: WBC count 4, hemoglobin 10.8, hematocrit 34.3, platelets 197. CMP: Sodium 130, potassium 5, chloride 100, serum bicarb 26, BUN 23, creatinine 0.83, glucose 126. LFTs unremarkable. Troponin 0.015. NT proBNP 670. EKG shows normal sinus rhythm with incomplete RBB pattern. No obvious acute ischemic changes. Negative for influenza, RSV, COVID. Afebrile. Hemodynamic stable. The patient is seen today December 18, 2023 in follow-up on the regular medical floor. He is currently resting fairly comfortably in bed. Awake and alert in no acute distress. He is maintaining O2 saturations in the 90s on 2 L/min per nasal cannula. Hold. The plan is for repair of his left hip fracture today. 242. Sodium 137. Potassium 3.7. Bicarb 27. BUN 20. Creatinine 0.78. Procalcitonin was negative at 0.08. Chest x-ray revealed some stable basilar streaky atelectasis. He remains on bronchodilators. Remains on oral diuretics. The patient is seen today December 19, 2023 in follow-up on the regular medical floor. Postoperative day #1. Status post left hemiarthroplasty. He is resting comfortably in bed. Awake and alert in no acute distress. Denies any worsening shortness of breath, cough or congestion. He is maintaining O2 saturations in the 90s on 2 L/min per nasal cannula. He is afebrile. Hemodynamically stable. White count 8.8. Hemoglobin 10.6. Platelets 243. He is continued on bronchodilators. Lactated Ringer's at [facility]. Lovenox for DVT prophylaxis. Objective - Vital Signs Vital signs: Vital Signs Temp 97.5 F L 12/19/23 09:06 Pulse 88 12/19/23 09:20 Resp 18 12/19/23 09:06 BP 136/68 12/19/23 09:06 Pulse Ox 94 L 12/19/23 09:08 FiO2 Intake & Output 12/18/23 12/19/23 12/19/23 18:59 06:59 18:59 Intake Total 900 Output Total 300 Balance 600 Intake: IV 850 Intake, IV Titration 50 Amount ceFAZolin 2 gm In Sodium 50 Chloride 0.9% 50 ml @ 100 mls/hr IVPB Q8HR [facility] Rx# :[id number] Output: Estimated Blood Loss 300 Other: Voiding Method Diaper # Voids 2 - Exam GENERAL EXAM: Alert, 83-year-old male, resting in bed, on 2 L nasal cannula, comfortable in no apparent distress. HEAD: Normocephalic and atraumatic EYES: Normal reaction of pupils, equal size. NOSE: Clear with pink turbinates. THROAT: No erythema or exudates. NECK: No masses, no JVD. CHEST: No chest wall deformity. LUNGS: Equal air entry with with limited chest excursion, diminished lung sounds bilaterally especially at the bases. CVS: S1 and S2 normal with no audible murmur, regular rhythm. No extra heart sounds ABDOMEN: No hepatosplenomegaly, active bowel sounds, no guarding or rigidity. SPINE: No scoliosis or deformity SKIN: No rashes CENTRAL NERVOUS SYSTEM: Alert and oriented x 3, dysarthric, facial symmetry, left sided hemiparesis and and left arm contracture, right upper and lower extremity strength graded 4/5. EXTREMITIES: Dressing to left hip clean and dry, there is no peripheral edema, clubbing, or cyanosis. Peripheral pulses are intact. - Labs CBC & Chem 7: 12/19/23 07:18 12/18/23 03:31 Labs: Abnormal Lab Results - Last 24 Hours (Table) 12/19/23 Range/Units 07:18 RBC 3.61 L (4.30-5.90) m/uL Hgb 10.6 L (13.0-17.5) gm/dL Hct 32.6 L (39.0-53.0) % Assessment and Plan Assessment: Acute hypoxemic respiratory failure, chest x-ray showing mild cardiomegaly, mild PVC, left basilar opacity obscuring the left heart border and hemidiaphragm. proBNP only mildly elevated at 670. Follow-up chest x-ray only stable basilar atelectasis. Procalcitonin negative. Antibiotics discontinued Fall sustaining acute compression fracture of left femoral neck and femoral head, surgically repaired on 12/18/2023 Hyponatremia Chronic obstructive pulmonary disease History of hyperlipidemia History of hypertension History of CVA/TIA, with left-sided hemiparesis and left upper arm contracture Obesity, with a BMI of 30.7 kg/m Chronic medical debility History of dementia ECF resident Plan: The patient was seen and evaluated Labs and medications reviewed Currently stable on 2 L nasal cannula Continue bronchodilators Continue incentive spirometer To work with PT/OT We will continue to follow I have personally seen and examined the patient, performed the documentation and the assessment and plan as written. Number of minutes spent on the visit: 10.
[2023-12-19] MEDS: HYDROcodone/APAP 5-325MG 1 EACH TAB PO PRN (16:12)
--- NOTE | 2023-12-20 10:37 | P.PN ---
Subjective Progress Note Date: 12/20/23 Patient is a 83-year-old male who resides at a local [facility]. Past medical history significant for COPD, CVA/TIA with left-sided hemiparesis, dementia, hyperlipidemia, hypertension, among other things. On Thursday, the patient reportedly fell while being assisted out of bed. He hit his head on a register. Also, fell on his left side. He did have some preliminary x-rays that were concerning for left hip fracture. Patient was sent to the emergency department for evaluation on 12/15/23. On arrival, he was found to be in some respiratory distress and hypoxic, he was placed on supplemental oxygen. Initial chest x-ray showing cardiomegaly, pulmonary vascular congestion, and left basilar opacity. This could represent atelectasis or infectious process, and/or possible pleural effusion. For this reason, we were asked to evaluate the patient yesterday evening. Patient is currently in room 484. He is on 3 L/min nasal cannula, no acute respiratory distress. He is technically a poor historian. He does endorse a occasional cough with minimal mucus production. Denies fevers, chills. Denies chest pain, palpitaitons, hemoptysis. He is mostly bedridden at the [facility]. He has a left arm contracture. Dysarthric. He does reportedly have trouble swallowing thin liquids. Eliquis is listed as a home medication. He did receive follow-up imaging in regards to his fall. CT of the brain did not show any acute intracranial process. There was a prior right frontal craniotomy flap which was stable. Underlying and for encephalomalacia and volume loss centrally. Hip x-ray concerning for impacted left femoral neck fracture. Follow-up CT of the left hip confirms acute compression fracture of the femoral neck and femoral head. CBC: WBC count 4, hemoglobin 10.8, hematocrit 34.3, platelets 197. CMP: Sodium 130, potassium 5, chloride 100, serum bicarb 26, BUN 23, creatinine 0.83, glucose 126. LFTs unremarkable. Troponin 0.015. NT proBNP 670. EKG shows normal sinus rhythm with incomplete RBB pattern. No obvious acute ischemic changes. Negative for influenza, RSV, COVID. Afebrile. Hemodynamic stable. The patient is seen today December 18, 2023 in follow-up on the regular medical floor. He is currently resting fairly comfortably in bed. Awake and alert in no acute distress. He is maintaining O2 saturations in the 90s on 2 L/min per nasal cannula. Hold. The plan is for repair of his left hip fracture today. 242. Sodium 137. Potassium 3.7. Bicarb 27. BUN 20. Creatinine 0.78. Procalcitonin was negative at 0.08. Chest x-ray revealed some stable basilar streaky atelectasis. He remains on bronchodilators. Remains on oral diuretics. The patient is seen today December 19, 2023 in follow-up on the regular medical floor. Postoperative day #1. Status post left hemiarthroplasty. He is resting comfortably in bed. Awake and alert in no acute distress. Denies any worsening shortness of breath, cough or congestion. He is maintaining O2 saturations in the 90s on 2 L/min per nasal cannula. He is afebrile. Hemodynamically stable. White count 8.8. Hemoglobin 10.6. Platelets 243. He is continued on bronchodilators. Lactated Ringer's at [facility]. Lovenox for DVT prophylaxis. The patient is seen today December 20, 2023 in follow-up on the regular medical floor. Postoperative day #2. He is awake and alert in no acute distress. He is maintaining O2 saturations in the 90s on 2 L/min per nasal cannula. He has been afebrile. Hemodynamically stable. Continued on bronchodilators. Lovenox for DVT prophylaxis. Remains on oral diuretics. [place] for pain control. Objective - Vital Signs Vital signs: Vital Signs Temp 98.6 F 12/20/23 07:24 Pulse 83 12/20/23 07:49 Resp 18 12/20/23 07:24 BP 121/67 12/20/23 07:24 Pulse Ox 90 L 12/20/23 07:24 FiO2 Intake & Output 12/19/23 12/20/23 12/20/23 18:59 06:59 18:59 Other: Voiding Method Diaper Diaper Diaper Incontinent # Voids 3 3 - Exam GENERAL EXAM: Awake, alert, 83-year-old male, on 2 L nasal cannula, in no apparent distress. HEAD: Normocephalic and atraumatic EYES: Normal reaction of pupils, equal size. NOSE: Clear with pink turbinates. THROAT: No erythema or exudates. NECK: No masses, no JVD. CHEST: No chest wall deformity. LUNGS: Equal air entry with no crackles, wheeze or rhonchi. Diminished. CVS: S1 and S2 normal with no audible murmur, regular rhythm. No extra heart sounds. ABDOMEN: No hepatosplenomegaly, active bowel sounds, no guarding or rigidity. SPINE: No scoliosis or deformity SKIN: No rashes CENTRAL NERVOUS SYSTEM: Left sided hemiparesis and and left arm contracture, right upper and lower extremity strength graded 4/5. EXTREMITIES: Dressing to left hip clean and dry, there is no peripheral edema, clubbing, or cyanosis. Peripheral pulses are intact. - Labs CBC & Chem 7: 12/19/23 07:18 12/18/23 03:31 Assessment and Plan Assessment: Acute hypoxemic respiratory failure, chest x-ray showing mild cardiomegaly, mild pulmonary vascular congestion, left basilar opacity obscuring the left heart border and hemidiaphragm. proBNP only mildly elevated at 670. Follow-up chest x-ray with stable basilar atelectasis. Procalcitonin negative. 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 Number of minutes spent on the visit: 10.
--- NOTE | 2023-12-20 11:27 | P.PN ---
Subjective Progress Note Date: 12/20/23 Principal diagnosis: Status post left fernando arthroplasty This is a 83 year-old male post left hip hemiarthroplasty. This is post-op day 2. The patient was evaluated at the bedside today. The patient denies nausea, vomiting, abdominal pain, shortness of breath, and chest pain this morning. He states his pain is controlled at this time. The patient has been up with physical therapy but he does not ambulate at baseline. Objective - Vital Signs Vital signs: Vital Signs Temp 98.6 F 12/20/23 07:24 Pulse 82 12/20/23 11:20 Resp 18 12/20/23 07:24 BP 121/67 12/20/23 07:24 Pulse Ox 90 L 12/20/23 07:24 FiO2 Intake & Output 12/19/23 12/20/23 12/20/23 18:59 06:59 18:59 Other: Voiding Method Diaper Diaper Diaper Incontinent # Voids 3 3 - Exam The patient does not appear in acute distress. Alert and orientated x3. Dress ing is clean dry and intact. Incision appears fine with no erythema or active drainage. Calf is soft and nontender. Good foot and ankle motion without difficulty. Sensation and circulatory status is intact. - Labs CBC & Chem 7: 12/19/23 07:18 12/18/23 03:31 Assessment and Plan (1) S/P hip hemiarthroplasty Current Visit: Yes Status: Acute Code(s): Z96.649 - PRESENCE OF UNSPECIFIED ARTIFICIAL HIP JOINT SNOMED Code(s): 852362218 (2) Closed left hip fracture Current Visit: Yes Status: Acute Code(s): S72.002A - FRACTURE OF UNSP PART OF NECK OF LEFT FEMUR, INIT SNOMED Code(s): 765929659 (3) Fall Current Visit: Yes Status: Acute Code(s): W19.XXXA - UNSPECIFIED FALL, INITIAL ENCOUNTER SNOMED Code(s): 7827103 Plan: 1. Continue pain control 2. Anticoagulation per internal medicine 3. Continue physical therapy 4. Anticipate discharge back to [facility] on discharge.
--- NOTE | 2023-12-20 17:09 | P.PN ---
Subjective Progress Note Date: 12/18/23 83-year-old patient, resident of [facility]. Follows Dr. Ferreira. 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 Mild cognitive impairment. Patient had a fall 2 days ago. Complaining of pain in the left hip. Appetite is fair. Bowels are fine. Patient is able to answer simple questions. Found to have left hip fracture. Eliquis held. Patient nonambulatory. Denies any chest pain or shortness of breath. Patient is slow to answer questions but able to answer them. Spoke to Dr. Sean Quinn orthopedic. I would prefer the patient surgery to be postponed till Thursday to tune him up a bit more. He will receive at least 48 hours of antibiotics. Also get input from pulmonary and cardiology. He agrees to the same. Surgery postponed to Thursday Objective - Vital Signs Vital signs: Vital Signs Temp 98.4 F 12/18/23 07:41 Pulse 88 12/18/23 11:11 Resp 17 12/18/23 07:41 BP 125/70 12/18/23 07:41 Pulse Ox 92 L 12/18/23 11:04 FiO2 Intake & Output 12/17/23 12/18/23 12/18/23 18:59 06:59 18:59 Output Total 0 Balance 0 Weight 91.626 kg Output: Urine 0 Other: # Voids 1 - Exam GENERAL: Reclining in bed, breathing better. EYES: Pupils equal. Conjunctiva maribel l. HEENT: External appearance of nose and ears normal, oral cavity grossly normal. NECK: JVD not raised; masses not palpable. HEART: First and second heart sounds are normal; no edema. LUNGS:[ Respiratory rate increased, decreased breath sounds . ABDOMEN: Soft, nontender, liver spleen not palpable, no masses palpable. PSYCH: Awake, able to answer simple questions l. MUSCULOSKELETAL:No Clubbing/cyanosis;muscles-grossly intact. OA. Limited range of motion left hip NEUROLOGICAL: [Cranial nerves grossly intact; no facial asymmetry, left forearm contracture. - Labs CBC & Chem 7: 12/19/23 07:18 12/18/23 03:31 Labs: Abnormal Lab Results - Last 24 Hours (Table) 12/18/23 Range/Units 03:31 RBC 3.86 L (4.30-5.90) m/uL Hgb 11.3 L (13.0-17.5) gm/dL Hct 34.6 L (39.0-53.0) % Assessment and Plan Assessment: -Acute compression fracture left femoral neck, secondary to fall 2 days prior to admission Follow-up with Dr. Quinn. For surgical intervention tomorrow December 17 -Left basal pneumonia suspect gram-negative organism: Improving IV ceftriaxone. Zithromax. -Probable acute congestive heart failure exacerbation from diastolic dysfunction EF 55 to 60% Lasix to p.o. from tomorrow morning proBNP 670 Cardiology following -Chronic medical debility. 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 Unclear why patient takes the same. Currently has been held in view of upcoming surgery. -DNR
--- NOTE | 2023-12-20 17:10 | P.PN ---
Subjective Progress Note Date: 12/19/23 83-year-old patient, resident of [facility]. Follows Dr. Ferreira. 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 Mild cognitive impairment. Patient had a fall 2 days ago. Complaining of pain in the left hip. Appetite is fair. Bowels are fine. Patient is able to answer simple questions. Found to have left hip fracture. Eliquis held. Patient nonambulatory. Denies any chest pain or shortness of breath. Patient is slow to answer questions but able to answer them. Spoke to Dr. Sean Quinn orthopedic. I would prefer the patient surgery to be postponed till Thursday to tune him up a bit more. He will receive at least 48 hours of antibiotics. Also get input from pulmonary and cardiology. He agrees to the same. Surgery postponed to Thursday 24-hour interval change 12/19/2023 Patient is seen and evaluated in follow-up on the regular medical floor. Postoperative day #1. Status post left hemiarthroplasty. He is resting comfortably in bed. Awake and alert in no acute distress. Denies any worsening shortness of breath, cough or congestion. Vital signs are reviewed and he is maintaining O2 saturations in the 90s on 2 L/min per nasal cannula. He is afebrile. Hemodynamically stable. Lab review shows white count 8.8. Hemoglobin 10.6. Platelets 243. He is continued on bronchodilators. Lactated Ringer's at [facility]. Lovenox for DVT prophylaxis. Objective - Vital Signs Vital signs: Vital Signs Temp 97.5 F L 12/19/23 09:06 Pulse 90 12/19/23 12:06 Resp 18 12/19/23 09:06 BP 136/68 12/19/23 09:06 Pulse Ox 94 L 12/19/23 09:08 FiO2 Intake & Output 12/18/23 12/19/23 12/19/23 18:59 06:59 18:59 Intake Total 900 Output Total 300 Balance 600 Intake: IV 850 Intake, IV Titration 50 Amount ceFAZolin 2 gm In Sodium 50 Chloride 0.9% 50 ml @ 100 mls/hr IVPB Q8HR [facility] Rx# :[id number] Output: Estimated Blood Loss 300 Other: Voiding Method Diaper # Voids 2 - Exam GENERAL: Reclining in bed, breathing better. EYES: Pupils equal. Conjunctiva maribel l. HEENT: External appearance of nose and ears normal, oral cavity grossly normal. NECK: JVD not raised; masses not palpable. HEART: First and second heart sounds are normal; no edema. LUNGS:[ Respiratory rate increased, decreased breath sounds . ABDOMEN: Soft, nontender, liver spleen not palpable, no masses palpable. PSYCH: Awake, able to answer simple questions l. MUSCULOSKELETAL:No Clubbing/cyanosis;muscles-grossly intact. OA. Limited range of motion left hip NEUROLOGICAL: [Cranial nerves grossly intact; no facial asymmetry, left forearm contracture. - Labs CBC & Chem 7: 12/19/23 07:18 12/18/23 03:31 Labs: Abnormal Lab Results - Last 24 Hours (Table) 12/19/23 Range/Units 07:18 RBC 3.61 L (4.30-5.90) m/uL Hgb 10.6 L (13.0-17.5) gm/dL Hct 32.6 L (39.0-53.0) % Assessment and Plan Assessment: -Acute compression fracture left femoral neck, secondary to fall 2 days prior to admission Follow-up with Dr. Quinn. For surgical intervention tomorrow December 17 -Left basal pneumonia suspect gram-negative organism: Improving IV ceftriaxone. Zithromax. -Probable acute congestive heart failure exacerbation from diastolic dysfunction EF 55 to 60% Lasix to p.o. from tomorrow morning proBNP 670 Cardiology following -Chronic medical debility. 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 Unclear why patient takes the same. Currently has been held in view of upcoming surgery. -DNR
--- NOTE | 2023-12-20 17:12 | P.PN ---
Subjective Progress Note Date: 12/20/23 83-year-old patient, resident of [facility] [place]. Follows Dr. Ferreira. 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 Mild cognitive impairment. Patient had a fall 2 days ago. Complaining of pain in the left hip. Appetite is fair. Bowels are fine. Patient is able to answer simple questions. Found to have left hip fracture. Eliquis held. Patient nonambulatory. Denies any chest pain or shortness of breath. Patient is slow to answer questions but able to answer them. Spoke to Dr. Sean Quinn orthopedic. I would prefer the patient surgery to be postponed till Thursday to tune him up a bit more. He will receive at least 48 hours of antibiotics. Also get input from pulmonary and cardiology. He agrees to the same. Surgery postponed to Thursday 24-hour interval change 12/19/2023 Patient is seen and evaluated in follow-up on the regular medical floor. Postoperative day #1. Status post left hemiarthroplasty. He is resting comfortably in bed. Awake and alert in no acute distress. Denies any worsening shortness of breath, cough or congestion. Vital signs are reviewed and he is maintaining O2 saturations in the 90s on 2 L/min per nasal cannula. He is afebrile. Hemodynamically stable. Lab review shows white count 8.8. Hemoglobin 10.6. Platelets 243. He is continued on bronchodilators. Lactated Ringer's at KVO. Lovenox for DVT prophylaxis. 12/20/2023 Patient is seen and evaluated resting comfortably in bed; no specific complaints reported Vital signs are reviewed and reveal temperature of 98.6, pulse 83, respiration 18 and blood pressure 121/67 Acute hypoxemic respiratory failure, chest x-ray showing mild cardiomegaly, mild pulmonary vascular congestion, left basilar opacity obscuring the left heart border and hemidiaphragm. proBNP only mildly elevated at 670. Follow-up chest x-ray with stable basilar atelectasis. Procalcitonin negative. Antibiotics discontinued -- Patient is status post fall with acute compression fracture of left femoral neck and femoral head; status post surgery on 12/18/2023 -- Plan is to discharge patient to [facility] once stable Objective - Vital Signs Vital signs: Vital Signs Temp 98.6 F 12/20/23 07:24 Pulse 85 12/20/23 11:30 Resp 18 12/20/23 07:24 BP 121/67 12/20/23 07:24 Pulse Ox 90 L 12/20/23 07:24 FiO2 Intake & Output 12/19/23 12/20/23 12/20/23 18:59 06:59 18:59 Other: Voiding Method Diaper Diaper Diaper Incontinent # Voids 3 3 - Exam GENERAL: Reclining in bed, breathing better. EYES: Pupils equal. Conjunctiva maribel l. HEENT: External appearance of nose and ears normal, oral cavity grossly normal. NECK: JVD not raised; masses not palpable. HEART: First and second heart sounds are normal; no edema. LUNGS:[ Respiratory rate increased, decreased breath sounds . ABDOMEN: Soft, nontender, liver spleen not palpable, no masses palpable. PSYCH: Awake, able to answer simple questions l. MUSCULOSKELETAL:No Clubbing/cyanosis;muscles-grossly intact. OA. Limited range of motion left hip NEUROLOGICAL: [Cranial nerves grossly intact; no facial asymmetry, left forearm contracture. - Labs CBC & Chem 7: 12/19/23 07:18 12/18/23 03:31 Assessment and Plan Assessment: -Acute compression fracture left femoral neck, secondary to fall 2 days prior to admission Follow-up with Dr. Quinn. For surgical intervention tomorrow December 17 -Left basal pneumonia suspect gram-negative organism: Improving IV ceftriaxone. Zithromax. -Probable acute congestive heart failure exacerbation from diastolic dysfunction EF 55 to 60% Lasix to p.o. from tomorrow morning proBNP 670 Cardiology following -Chronic medical debility. 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 Unclear why patient takes the same. Currently has been held in view of upcoming surgery. -DNR
[2023-12-21] MEDS ORDERED: IPRATROPIUM-ALBUTEROL 3 ML NEB ONE (00:01)
[2023-12-21] MEDS ORDERED: levETIRAcetam ORAL SOLN 500 MG/5 ML CUP ONE (00:01)
[2023-12-21] MEDS ORDERED: MULTIVITAMINS, THERA LIQUID 237 ML BOTTLE ONE (00:01)
[2023-12-21 07:30] VITALS: BP 144/75; PULSE 75; RESP 20; TEMP 98
[2023-12-21] MEDS ORDERED: CHOLECALCIFEROL 25 MCG (1000 IU) TABLET ONE (10:25)
[2023-12-21] MEDS ORDERED: ASPIRIN 81 MG ONE (10:25)
[2023-12-21] MEDS ORDERED: CYCLOBENZAPRINE 10 MG TAB ONE (10:25)
[2023-12-21] MEDS ORDERED: HYDROcodone/APAP 5-325MG 1 EACH TAB ONE (10:26)
[2023-12-21] MEDS ORDERED: ENOXAPARIN 40 MG/0.4 ML SYRINGE SQ ONE (10:26)
[2023-12-21] MEDS ORDERED: FUROSEMIDE 40 MG TAB ONE (10:26)
[2023-12-21] MEDS ORDERED: SENNOSIDES 8.6 MG TAB ONE ×2 (10:26→20:51)
[2023-12-21] MEDS ORDERED: HYDROcodone/APAP 10-325MG 1 EACH TAB ONE (17:24)
[2023-12-21] MEDS ORDERED: TAMSULOSIN 0.4 MG CAP.ER.24H PO ONE (20:51)
[2023-12-21] MEDS ORDERED: ATORVASTATIN 80 MG TAB ONE (20:51)
[2023-12-22] MEDS ORDERED: IPRATROPIUM-ALBUTEROL 3 ML NEB ONE ×3 (00:01→20:21)
[2023-12-22] MEDS ORDERED: levETIRAcetam ORAL SOLN 500 MG/5 ML CUP ONE (00:01)
[2023-12-22] MEDS ORDERED: AMMONIUM LACTATE 12% CREAM 140 GM TUBE TOPICAL ONE (00:01)
[2023-12-22] MEDS ORDERED: HYDROcodone/APAP 5-325MG 1 EACH TAB ONE ×3 (00:03→16:11)
[2023-12-22] MEDS ORDERED: CHOLECALCIFEROL 25 MCG (1000 IU) TABLET ONE (09:17)
[2023-12-22] MEDS ORDERED: ASPIRIN 81 MG ONE (09:17)
[2023-12-22] MEDS ORDERED: SENNOSIDES 8.6 MG TAB ONE ×2 (09:18→20:36)
[2023-12-22] MEDS ORDERED: FUROSEMIDE 40 MG TAB ONE (09:18)
[2023-12-22] MEDS ORDERED: ENOXAPARIN 40 MG/0.4 ML SYRINGE SQ ONE (09:19)
[2023-12-22] MEDS ORDERED: SENNOSIDES-DOCUSATE SODIUM 1 EACH TAB PO ONE (15:42)
[2023-12-22] MEDS ORDERED: TAMSULOSIN 0.4 MG CAP.ER.24H PO ONE (20:35)
[2023-12-22] MEDS ORDERED: ATORVASTATIN 80 MG TAB ONE (20:36)
[2023-12-22] MEDS ORDERED: ACETAMINOPHEN TAB 325 MG TAB ONE (20:39)
[2023-12-23] MEDS ORDERED: HYDROcodone/APAP 5-325MG 1 EACH TAB ONE ×2 (01:10→05:34)
[2023-12-23] MEDS ORDERED: ASPIRIN 81 MG ONE (10:20)
[2023-12-23] MEDS ORDERED: SENNOSIDES 8.6 MG TAB ONE (10:20)
[2023-12-23] MEDS ORDERED: CHOLECALCIFEROL 25 MCG (1000 IU) TABLET ONE (10:20)
[2023-12-23] MEDS ORDERED: ENOXAPARIN 40 MG/0.4 ML SYRINGE SQ ONE (10:21)
[2023-12-23] MEDS ORDERED: FUROSEMIDE 40 MG TAB ONE (10:21)
[2024-01-13 09:24] LABS: African American GFR (CKD) >90; Anion Gap 3 mmol/L; Blood Urea Nitrogen 19 mg/dL (9-20); Calcium 8.4 mg/dL (8.4-10.2); Carbon Dioxide 31 mmol/L (22-30); Chloride 98 mmol/L (98-107); Glucose 99 mg/dL (74-99); Potassium 3.5 mmol/L (3.5-5.1); Sodium 132 mmol/L (137-145)
[2024-01-13 09:26] LABS: HCT 31.8 % (39.0-53.0); HGB 10.1 gm/dL (13.0-17.5); MCH 28.8 pg (25.0-35.0); MCHC 31.9 g/dL (31.0-37.0); MCV 90.6 fL (80.0-100.0); Platelet Count 288 k/uL (150-450); RBC 3.51 m/uL (4.30-5.90); RDW 13.8 % (11.5-15.5); WBC 8.3 k/uL (3.8-10.6)
[2024-01-13 09:27] LABS: Basophils % (A) 0 %; Eosinophils # (A) 0.5 k/uL (0-0.7); Eosinophils % (A) 6 %; Lymphocytes # (A) 1.5 k/uL (1.0-4.8); Lymphocytes % (A) 18 %; Monocytes # (A) 0.7 k/uL (0-1.0); Monocytes % (A) 8 %; Neutrophils # (A) 5.6 k/uL (1.3-7.7); Neutrophils % (A) 67.3
== END 2023-12-23 12:30 | disposition home or self-care (01) | DRG 521 ==
LOC: EC 16:31 → 4SSUR 22:27
PROVIDERS: ADMIT Hospitalist; ATTEND Hospitalist
PROC: 0SRS0JA Replacement of Left Hip Joint, Femoral Surface with Synthetic Substitute, Uncemented, Open Approach (ICD-10-PCS; principal; 2023-12-18 12:30)
DX: S72.012A Unspecified intracapsular fracture of left femur, initial encounter for closed fracture (principal); I50.33 Acute on chronic diastolic (congestive) heart failure; J15.69 Pneumonia due to other Gram-negative bacteria; J96.01 Acute respiratory failure with hypoxia; J44.0 Chronic obstructive pulmonary disease with (acute) lower respiratory infection; I69.354 Hemiplegia and hemiparesis following cerebral infarction affecting left non-dominant side; E87.1 Hypo-osmolality and hyponatremia; G31.84 Mild cognitive impairment of uncertain or unknown etiology; I11.0 Hypertensive heart disease with heart failure; E66.9 Obesity, unspecified; Z66 Do not resuscitate; R13.10 Dysphagia, unspecified; N40.0 Benign prostatic hyperplasia without lower urinary tract symptoms; E78.5 Hyperlipidemia, unspecified; F03.90 Unspecified dementia, unspecified severity, without behavioral disturbance, psychotic disturbance, mood disturbance, and anxiety; R47.1 Dysarthria and anarthria; R53.81 Other malaise; I49.3 Ventricular premature depolarization; G93.89 Other specified disorders of brain; W19.XXXA Unspecified fall, initial encounter; Y92.129 Unspecified place in nursing home as the place of occurrence of the external cause; Z68.30 Body mass index [BMI] 30.0-30.9, adult; Z79.01 Long term (current) use of anticoagulants; Z79.82 Long term (current) use of aspirin; Z79.899 Other long term (current) drug therapy; I69.398 Other sequelae of cerebral infarction; Z74.01 Bed confinement status
CPT/HCPCS: 36415; 64447; 70450; 71045; 73501; 73502; 80048; 80053; 83880; 84145; 84484; 85025; 85610; 85730; 87636; 93005; 93306; 94640; 94760; 96365; 96368; 96372; 96375; 99285